=== PATIENT | female | born 1940 | race Caucasian/White ===

== ENCOUNTER 2024-11-27 16:41 | Inpatient (IN) | payer MEDICARE, MEDICAID, SELFPAY ==
[2024-11-27] VITALS (7 sets, daily range): BP systolic 124–165; BP diastolic 87–97; PULSE 92–116; RESP 16–22; TEMP 36.6–36.9; O2SAT 95–97; BMI 25.0
[2024-11-27 19:19] LABS: Basophils # (Auto) 0.1 Thou/mm3 (0.0-0.2); Basophils % (Auto) 0 % (0-2.5); Eosinophils % (Auto) 0 % (0-10); Hematocrit 44.5 % (36.0-46.0); Hemoglobin 14.2 g/dL (12.0-16.0); Immature Granulocytes % (Auto) 1 % (0-0); Immature Granulocytes Auto 0.12 Thou/mm3 (0.00-0.00); Lymphocytes # (Auto) 1.1 Thou/mm3 (1.0-4.8); Lymphocytes % (Auto) 5 % (10-50); Mean Corpuscular HGB Conc 31.9 g/dl (31.0-37.0); Mean Corpuscular Hemoglobin 26.4 pg (25.0-35.0); Mean Corpuscular Volume 83 fL (80-100); Monocytes # (Auto) 1.3 Thou/mm3 (0.0-0.8); Monocytes % (Auto) 6 % (0-12); Neutrophils # (Auto) 19.3 Thou/mm3 (1.8-7.7); Neutrophils % (Auto) 88 % (37-80); Nucleated Red Blood Cell % 0 /100 WBC (0); Platelet Count 506 Thou/mm3 (140-440); RDW Standard Deviation 48.8 fL (36.4-46.3); Red Blood Count 5.37 Miln/mm3 (4.00-5.20)
[2024-11-27] MEDS: ONDANSETRON INJ 2 MG/ML INJ 2 ML 4 MG IV ×2 (19:34→20:46)
[2024-11-27] MEDS: SODIUM CHLORIDE 0.9% 1000 ML 1,000 ML 999 ML IV ×2 (19:34→22:47)
[2024-11-27 19:51] LABS: Alanine Aminotransferase 22 U/L (10-49); Albumin, Serum 5.2 gm/dL (3.4-4.8); Albumin/Globulin Ratio 1.6 (1.2-2.2); Alkaline Phosphatase 176 U/L (46-116); Anion Gap 14 (7-16); Aspartate Amino Transferase 29 U/L (0-34); BUN/Creatinine Ratio 16 Ratio (12-20); Bilirubin,Total 0.7 mg/dL (0.3-1.2); Blood Urea Nitrogen 32 mg/dL (9-23); Calcium 10.3 mg/dL (8.3-10.6); Calcium (Corrected) 10.3 mg/dL (8.5-10.1); Carbon Dioxide 25.4 mMol/L (20.0-31.0); Chloride 97 mMol/L (98-107); Estimated Creatinine Clearance 21.1 mL/min (>60); Globulin 3.3 gm/dL (2.3-3.5); Glucose 348 mg/dL (74-106); Lipase 41 U/L (12-53); Osmolality,Calculated 292 (275-295); Potassium 4.4 mMol/L (3.4-5.1); Sodium 136 mMol/L (136-145); Total Protein 8.5 gm/dL (5.7-8.2); eGFR 24 See Note
--- NOTE | 2024-11-27 20:17 | EDNOTE_ITS ---
Nausea/Vomit./Diarrhea-RME/HPI General Chief complaint: Nausea/Vomiting/Diarrhea Stated complaint: NAUSEA,WEAKNESS, VOMITTING Time Seen by Provider: 11/27/24 18:13 Arrival date/time: 11/27/24 16:41 This is a 84-year-old female that comes in with complaints of abdominal pain nausea vomiting that started prior to arrival. Patient also reports diarrhea. Patient states she feels like she is dehydrated. Patient reports history of anxiety, GERD, diabetes. Previous notes report that patient has a history of dementia. Related Data Home Medications ?Medication ?Instructions ?Recorded ?Confirmed alprazolam 0.5 mg tablet 0.5 mg PO QDAY PRN Anxiety 1 12/14/18 11/29/24 insulin glargine 100 unit/mL (3 16 unit subcut DAILY 1 11/29/24 mL) subcutaneous pen (Basaglar KwikPen U-100 Insulin) diphenhydramine HCl 25 mg capsule mg 11/29/24 (Banophen) pregabalin 75 mg capsule mg 11/29/24 ropinirole 0.5 mg tablet mg 11/29/24 Previous Rx's ?Medication ?Instructions ?Recorded Lactobacillus acidophilus 20 100 mmu cells (0.005 x 20 billion 11/30/24 billion cell capsule cell) PO QDAY #30 caps psyllium husk 0.4 gram capsule 0.4 g PO QDAY PRN const ipation #30 11/30/24 (Fiber (psyllium husk)) caps Allergies Allergy/AdvReac Type Severity Reaction Status Date / Time No Known Allergies Allergy Verified 08/09/22 16:16 Review of Systems Review of Systems Systems Reviewed: All systems reviewed, normal except as documented Past Medical History Past Medical History NEUROLOGIC: Positive Migraine CARDIAC: Positive Cardiac Disorders, Edema, Hypertension and Varicose Veins RESPIRATORY: Positive Bronchitis and Pneumonia GASTROINTESTINAL: Positive Gastrointestinal Disorders, Gall Bladder Disease, Ulcer and Gastroesophageal Reflux Disease REPRODUCTIVE: Positive Previous Pregnancies MUSCULOSKELETAL: Positive Musculoskeletal Disorders, Arthritis and Fractures ENT: Positive Cataracts ENDOCRINE: Positive Endocrine Disorders and Diabetes Mellitus Type 2 PSYCHO/SOCIAL: Positive Depression and Anxiety OTHER HISTORY: Positive Falls, Chicken Pox, Measles, Mumps and Cancer Family History FAMILY HISTORY: Negative Family Cardiac Disorders Surgical History SURGICAL: Positive Tonsillectomy, Joint Replacement, Hysterectomy and Tubal Ligation Social History SMOKING STATUS: Never smoker SECOND HAND EXPOSURE: No SUBSTANCE USE: does not use ED Exam General General appearance: Present alert and other (Moderate distress vomiting upon arrival) Head Head exam: Present atraumatic Eye Eye exam: Present normal appearance, PERRL and EOMI ENT ENT exam: Present normal exam, normal oropharynx and mucous membranes moist Neck Neck exam: Present normal inspection, full ROM and trachea midline Chest Chest inspection: Present normal inspection and symmetric chest wall rise Respiratory Respiratory exam: Present normal lung sounds bilaterally Cardiovascular Cardiovascular exam: Present regular rate, normal rhythm and normal heart sounds Abdominal Exam Abdominal exam: Present soft and other (Diffuse abdominal pain pain to palpation.) Extremities Exam Extremities exam: Present normal inspection and full ROM Back Exam Back exam: Present normal inspection and full ROM Neurological Exam Neurological exam: Present alert and oriented X3 Psychiatric Psychiatric exam: Present normal affect and normal mood Skin Skin exam: Present warm, dry, intact and normal color Course Quality Measures none Orders Category Date Time Status Bedside COVID-19 Antigen Test NOW Care 11/27/24 19:01 Completed Bedside Influenza A&B Antigen Test NOW Care 11/27/24 19:01 Completed COVID-19 Screening Questionnaire NOW Care 11/28/24 01:[address] Screening NOW Care 11/27/24 20:33 Completed Decision to Admit X1 Care 11/28/24 01:29 Completed IV [Insert IV] NOW Care 11/27/24 18:36 Completed NG / OG Tube to LIS NOW Care 11/28/24 01:[address] abdomen pelvis w con Stat Exams 11/27/24 20:33 Completed Beta Hydroxybutyrate Stat Lab 11/27/24 23:00 Completed CBC Stat Lab 11/27/24 18:30 Completed Comprehensive Metabolic Panel Stat Lab 11/27/24 18:30 Completed Lipase Stat Lab 11/27/24 18:30 Completed Urinalysis, C/S if Indicated Stat Lab 11/27/24 22:17 Completed Urine Culture Stat Lab 11/27/24 22:17 Completed Ondansetron Inj [Zofran Inj] Med 11/27/24 19:03 Discontinued 4 mg IV X1 ONE Ondansetron Inj [Zofran Inj] Med 11/27/24 20:33 Discontinued 4 mg IV X1 ONE Piper/Tazo Inj [Zosyn Inj] 3.375 gm Med 11/27/24 23:09 Discontinued Sodium Chloride 0.9% (P) [Ns 0.9% (P)] 50 ml IV X1 Sodium Chloride 0.9% 1000 ml [Ns] 1,000 ml Med 11/27/24 19:01 Discontinued IV 999 mls/hr Sodium Chloride 0.9% 1000 ml [Ns] 1,000 ml Med 11/27/24 22:26 Discontinued IV 999 mls/hr fentaNYL INJ [Sublimaze Inj] Med 11/27/24 20:17 Discontinued 12.5 mcg IV X1 ONE fentaNYL INJ [Sublimaze Inj] Med 11/27/24 22:24 Discontinued 25 mcg IV X1 ONE Vital Signs Vital signs: Vital Signs Temperature 98.4 F 11/27/24 16:45 Pulse Rate 115 H 11/27/24 16:45 Respiratory Rate 16 11/27/24 16:45 Blood Pressure 124/87 H 11/27/24 16:45 Pulse Oximetry (%) 95 11/27/24 16:45 Oxygen Delivery Method Room Air 11/27/24 16:45 Nausea/Vomiting/Diarrhea MDM Narrative MDM Narrative:: Upon arrival to the emergency room patient vomiting. Patient was given 2 separate doses of Zofran IV. 2 L of IV fluid given to patient. Fentanyl given for pain. Patient's labs show a white count of 22, hemoglobin and hematocrit of 14.2 and 44.5, platelet 406, neutrophil count 88. Patient BUN and creatinine elevated at 32 and 2.0. Glucose is 348, alk phos is 176, AST and ALT unremarkable. Lipase is 41. Urine positive for UTI. Patient given a dose of Zosyn. Awaiting CT results. I gave report to Dr. Newman at 2300 she will follow-up with CT results. Patient data External records reviewed:: [facility] previous records Clinical information provided by:: patient Social determinants that could affect healthcare access:: none Patient has the following chronic illnesses:: see hpi How is presenting disease/condition affected by chronic disease/condition?: exacerbated by Evaluation data The following diagnostics were reviewed and interpreted by me:: lab results and radiology exam(s) Lab and/or radiology exams considered but not ordered:: none Interpretation Summary: see note Medications / Prescriptions Medications / Prescriptions considered but not ordered:: none Medication administrations:: Medication Administration History Discontinued Medications Acetaminophen (Acetaminophen 325 Mg Tablet) 650 mg PO Q6H PRN PRN Reason: PAIN SCALE 1-3 (mild Stop: 12/28/24 01:53 Acetaminophen (Acetaminophen 325 Mg Tablet) 650 mg PO Q6H PRN PRN Reason: Fever >100 Stop: 12/28/24 01:53 Dextrose (Dextrose 50%-Water Inj 50 Ml Syringe) 25 ml IV Q15MIN PRN PRN Reason: BG 50-70 responsive npo pt Stop: 12/28/24 01:53 Dextrose (Dextrose 50%-Water Inj 50 Ml Syringe) 50 ml IV Q15MIN PRN PRN Reason: BG <50 OR BG <70 & pt unresponsive Stop: 12/28/24 01:53 Diphenhydramine HCl (Diphenhydramine Inj 50 Mg/Ml Vial) 12.5 mg IVP Q6H PRN PRN Reason: ITCHING Stop: 12/28/24 01:58 Fentanyl Citrate (Fentanyl Cit Inj 50 Mcg/Ml Amp 2ml) 12.5 mcg IV X1 ONE Stop: 11/27/24 20:18 Last Admin: 11/27/24 20:27 Dose: 12.5 mcg Documented By: EF Fentanyl Citrate (Fentanyl Cit Inj 50 Mcg/Ml Amp 2ml) 25 mcg IV X1 ONE Stop: 11/27/24 22:25 Last Admin: 11/27/24 22:48 Dose: 25 mcg Documented By: EF Fosfomycin Tromethamine (Fosfomycin Pwd 3 Gm Packet (Non-Formulary)) 3 gm PO X1 ONE Stop: 11/30/24 16:30 Last Admin: 11/30/24 18:15 Dose: Not Given Documented By: SP Non-Admin Reason: Medication Not Available Comments: patient ready to go home med not available to give Glucagon (Glucagon Inj 1 Mg Vial) 1 mg IM Q15MIN PRN PRN Reason: BG <70, and no IV access Heparin Sodium (Porcine) (Heparin Sod Inj 5000 Unit/Ml Vial) 5,000 unit SC Q8HR HARINI Stop: 12/12/24 05:59 Last Admin: 11/30/24 15:34 Dose: 5,000 unit Documented By: LADONNA Co-signed By: Admin: 11/30/24 06:23 Dose: 5,000 unit Documented By: CTF Co-signed By: AAA Admin: 11/29/24 22:00 Dose: 5,000 unit Documented By: CTF Co-signed By: AAA Admin: 11/29/24 14:58 Dose: 5,000 unit Documented By: Co-signed By: HERRERA Admin: 11/29/24 07:23 Dose: 5,000 unit Documented By: SAMRA Co-signed By: DEWAYNE Admin: 11/28/24 23:36 Dose: 5,000 unit Documented By: SAMRA Co-signed By: DEWAYNE Admin: 11/28/24 14:00 Dose: 5,000 unit Documented By: VG Co-signed By: TM Admin: 11/28/24 06:29 Dose: 5,000 unit Documented By: WINTER Co-signed By: JORDAN Hydromorphone HCl (Hydromorphone Inj 2 Mg/Ml Vial) 0.25 mg IVP Q6H PRN PRN Reason: PAIN Stop: 12/03/24 02:53 Last Admin: 11/28/24 04:07 Dose: 0.25 mg Documented By: JORDAN Hydromorphone HCl (Hydromorphone Inj 2 Mg/Ml Vial) 0.25 mg IVP Q6H PRN PRN Reason: PAIN SCALE 4-10(Mod-Sev Stop: 12/03/24 02:53 Last Admin: 11/28/24 18:20 Dose: 0.25 mg Documented By: SPENCER Sodium Chloride (Ns) 1,000 mls @ 999 mls/hr IV .Q1H1M ONE Stop: 11/27/24 20:01 Last Infusion: 11/27/24 20:35 Dose: Infused Documented By: Admin: 11/27/24 19:34 Dose: 999 mls/hr Documented By: EF Sodium Chloride (Ns) 1,000 mls @ 999 mls/hr IV .Q1H1M ONE Stop: 11/27/24 23:26 Last Infusion: 11/27/24 23:48 Dose: Infused Documented By: Admin: 11/27/24 22:47 Dose: 999 mls/hr Documented By: EF Piperacillin Sod/Tazobactam (Sod 3.375 gm/ Sodium Chloride) 50 mls @ 100 mls/hr IV X1 ONE Stop: 11/27/24 23:38 Last Infusion: 11/27/24 23:50 Dose: Infused Documented By: Admin: 11/27/24 23:20 Dose: 100 mls/hr Documented By: AC Sodium Chloride (Ns) 1,000 mls @ 125 mls/hr IV .Q8H AHRINI Stop: 12/28/24 02:03 Last Admin: 11/30/24 09:54 Dose: 125 mls/hr Documented By: Infusion: 11/30/24 08:01 Dose: Infused Documented By: Admin: 11/30/24 00:01 Dose: 125 mls/hr Documented By: Infusion: 11/30/24 00:01 Dose: Infused Documented By: Admin: 11/29/24 17:59 Dose: 125 mls/hr Documented By: Infusion: 11/29/24 15:22 Dose: Infused Documented By: Admin: 11/29/24 07:22 Dose: 125 mls/hr Documented By: Infusion: 11/29/24 07:22 Dose: Infused Documented By: Admin: 11/28/24 23:35 Dose: 125 mls/hr Documented By: Infusion: 11/28/24 22:04 Dose: Infused Documented By: Admin: 11/28/24 14:04 Dose: 125 mls/hr Documented By: Infusion: 11/28/24 13:51 Dose: Infused Documented By: Admin: 11/28/24 02:32 Dose: 125 mls/hr Documented By: LEXA Insulin Glargine (Insulin Glargine (Lantus) 5 Unit/0.05 Ml (Per 5 Units)) [facility] Stop: 12/28/24 08:59 Last Admin: 11/30/24 09:14 Dose: 16 unit Documented By: LADONNA Co-signed By: Admin: 11/29/24 09:14 Dose: 16 unit Documented By: Co-signed By: HENRI Admin: 11/28/24 10:15 Dose: 16 unit Documented By: JITENDRA Co-signed By: ZACH Insulin Human Lispro (Insulin Lispro (Admelog) 1 Unit/0.01 Ml Unit) 0 unit SC AC [facility]; Protocol Stop: 12/28/24 07:29 Last Admin: 11/30/24 19:24 Dose: Not Given Documented By: LADONNA Non-Admin Reason: Per Protocol Admin: 11/30/24 12:20 Dose: Not Given Documented By: LADONNA Non-Admin Reason: Per Protocol Admin: 11/30/24 08:00 Dose: Not Given Documented By: LADONNA Non-Admin Reason: Per Protocol Admin: 11/29/24 17:01 Dose: Not Given Documented By: Non-Admin Reason: Per Protocol Admin: 11/29/24 11:50 Dose: Not Given Documented By: Non-Admin Reason: NPO Comments: ROMAIN okay to skip Admin: 11/29/24 07:44 Dose: Not Given Documented By: Non-Admin Reason: NPO Admin: 11/28/24 17:13 Dose: Not Given Documented By: SPENCER Non-Admin Reason: NPO Admin: 11/28/24 14:00 Dose: 3 unit Documented By: JITENDRA Co-signed By: ZACH Comments: CONFIRMED W/PROVIDER OK TO GIVE NOW Admin: 11/28/24 07:47 Dose: 3 unit Documented By: JITENDRA Co-signed By: ZACH Lactobacillus Rhamnosus (Lactobacillus Rhamnosus 1 Cap) 1 cap PO BID HARINI Stop: 12/29/24 11:59 Last Admin: 11/30/24 09:14 Dose: 1 cap Documented By: Admin: 11/29/24 21:58 Dose: 1 cap Documented By: Admin: 11/29/24 12:10 Dose: Not Given Documented By: Non-Admin Reason: PT. NPO MD aware Melatonin (Melatonin 3 Mg Tablet) 3 mg PO X1 ONE Stop: 11/29/24 23:45 Last Admin: 11/30/24 00:01 Dose: 3 mg Documented By: SAMRA Metoclopramide HCl (Metoclopramide Inj 5 Mg/Ml Vial 2 Ml) 5 mg IVP Q8HR PRN; Protocol PRN Reason: NAUSEA OR VOMITING Stop: 12/28/24 01:59 Last Admin: 11/28/24 18:19 Dose: 5 mg Documented By: Admin: 11/28/24 10:15 Dose: 5 mg Documented By: JITENDRA Metoclopramide HCl (Metoclopramide Inj 5 Mg/Ml Vial 2 Ml) 5 mg IVP X1 ONE; Protocol Stop: 11/28/24 01:59 Last Admin: 11/28/24 04:07 Dose: 5 mg Documented By: JORDAN Ondansetron HCl (Ondansetron Inj 2 Mg/Ml Inj 2 Ml) 4 mg IV X1 ONE; Protocol Stop: 11/27/24 19:04 Last Admin: 11/27/24 19:34 Dose: 4 mg Documented By: WINTER Ondansetron HCl (Ondansetron Inj 2 Mg/Ml Inj 2 Ml) 4 mg IV X1 ONE; Protocol Stop: 11/27/24 20:34 Last Admin: 11/27/24 20:46 Dose: 4 mg Documented By: EF Ondansetron HCl (Ondansetron Inj 2 Mg/Ml Inj 2 Ml) 4 mg IV Q6H PRN; Protocol PRN Reason: NAUSEA OR VOMITING Stop: 12/28/24 01:53 Last Admin: 11/29/24 10:49 Dose: 4 mg Documented By: Admin: 11/28/24 15:53 Dose: 4 mg Documented By: GC Pantoprazole Sodium (Pantoprazole Inj 40 Mg Vial) 40 mg IVP QDAY HARINI Stop: 12/28/24 08:59 Last Admin: 11/30/24 09:54 Dose: 40 mg Documented By: Admin: 11/29/24 09:13 Dose: 40 mg Documented By: Admin: 11/28/24 10:15 Dose: 40 mg Documented By: VG Prochlorperazine Edisylate (Prochlorperazine Inj 5 Mg/Ml Vial 2 Ml) 10 mg IVP Q6H [facility]; Protocol Stop: 12/29/24 11:59 Last Admin: 11/30/24 15:00 Dose: 10 mg Documented By: Admin: 11/30/24 06:21 Dose: 10 mg Documented By: Admin: 11/29/24 23:26 Dose: 10 mg Documented By: Admin: 11/29/24 18:48 Dose: 10 mg Documented By: Admin: 11/29/24 14:50 Dose: 10 mg Documented By: Comments: pharmacy brought in late see [facility] Consultations Consultation(s) initiated? (list below): No Diagnosis Nausea Differential Diagnosis: gastroenteritis, dehydration and other (SBO, constiptation ) Most likely diagnosis given after review of the tests above:: sbo Admission Indicated Admission indicated?: indicated Admission Request Was there a request for admission?: Yes Admission Attestation Admission request attestation: Discussed case Hospitalist service regarding admission. Discussed patients ED course, exam findings, labs, and radiology results. The Hospitalist agrees to accept the patient for admission. Disposition Plan Disposition Plan: Admit Discharge Plan Plan Patient Disposition: Admit Acute Care w/in Hospital Disposition Comment: MT Patient condition on transfer: Stable Problem List Clinical Impression: Abdominal pain, Hyperglycemia, Diabetes mellitus, Acute kidney injury, Acute dehydration, Acute UTI, Small bowel obstruction Patient/Caregiver Discharge Instructions Other Activity Instructions:: Follow-up with PCP within 1 week Continue taking medicines as prescribed Follow-up with primary care in regards to pneumobilia seen on CT abdomen pelvis incidental finding Take Fiber and probiotic as needed
[2024-11-27] MEDS: fentaNYL CIT INJ 50 mCg/ML AMP 2ML 12.5 MCG IV (20:27)
--- NOTE | 2024-11-27 20:33 | XR_ITS ---
Examination: CT abdomen with intravenous contrast CT pelvis with intravenous contrast 2-D coronal reconstructions 2-D sagittal reconstructions Date and time of exam:November 27, 2024 2152 hrs. Comparison 07/03/2023 Indications: Nausea abdominal pain and vomiting today. CTDI: vol (mGy) 7.12 DLP: (mGycm) 384 Technique: Multiple axial sections of the abdomen and pelvis have been obtained. 64 slice high-resolution scanner used. 3 mm axial sections have been obtained, post intravenous injection 30 cc Isovue-300.2-D sagittal, coronal reconstructions obtained. Low dose protocols were performed. One or more of the following dose reduction techniques were used; automated exposure control, adjustment of the mA and/or KV according to patient size, use of iterative reconstruction technique. Findings: Pneumobilia Absent gallbladder Spleen is not enlarged No pancreatic mass Multiple fluid distended small bowel loops Left hip arthroplasty generates artifacts in the pelvis Severe osteopenia with kyphoplasty L2 and fusion L4-S1 with satisfactory alignment Impression: High-grade mechanical small bowel obstruction
[2024-11-27 22:45] LABS: Collection Type, Urine Voided
[2024-11-27] MEDS: fentaNYL CIT INJ 50 mCg/ML AMP 2ML 25 MCG IV (22:48)
[2024-11-27 23:02] LABS: Bacteria,Urine 3+; Bilirubin,Urine Negative (Negative); Blood,Urine Negative (Negative); Color,Urine Yellow (Lt Yel-Yel); Glucose, Urine 3+ (Negative); Hyaline Casts,Urine 1 /hpf (0-1); Ketones,Urine Negative (Negative); Leukocyte Esterase,Urine Positive (Negative); Nitrite,Urine Negative (Negative); PH,Urine 5.5 (5.0-7.0); Protein,Urine 1+ (Neg - Trace); RBC,Urine 10 /hpf (0-3); Specific Gravity,Urine 1.027 (1.001-1.035); Squamous Epithelial Cell,Urine 6 /hpf (0-5); Urobilinogen,Urine Negative mg/dL (0.0-1.0); WBC,Urine 19 /hpf (0-5)
[2024-11-27 23:04] LABS: Clarity,Urine Hazy (Clear/Hazy); Culture Indicated,Urine Yes
[2024-11-27 23:19] LABS: Beta Hydroxybutyrate 0.1 mmol/L (<0.6)
[2024-11-27] MEDS: PIPER/TAZO INJ 3.375 GM in SODIUM CHLORIDE 0.9% (P) 50 ML IV (23:20)
[2024-11-28] VITALS (8 sets, daily range): BP systolic 112–165; BP diastolic 66–96; PULSE 99–108; RESP 16–24; TEMP 36.1–36.8; O2SAT 94–97; BMI 22.1
--- NOTE | 2024-11-28 | XR_ITS ---
Examination: Abdomen AP single view Technique: AP portable supine abdomen, single view Exam date and time: November 28, 2024 and 1917 hours INDICATIONS: 6 hour delayed film post small bowel series today. FINDINGS: Markedly distended small bowel loops IMPRESSION: High-grade mechanical small bowel obstruction. Additional delayed films will be obtained.
--- NOTE | 2024-11-28 | XR_ITS ---
Examination: Small bowel series with KUB's AP supine abdomen 6 views of Examination type: November 28, 2024 1319 hours INDICATIONS: Abdominal pain and distention this week, small bowel obstruction pattern on CT abdomen pelvis November 27, 2024 TECHNIQUE AND FINDINGS: Studio Manager AP supine abdomen demonstrates satisfactory position orogastric tube Air distended small bowel loops in Abdomen films immediate, 1 minute, 30 minutes, 2 hours, 3.5 hours show contrast in distended small bowel loops measuring up to 5.7 cm in dimension IMPRESSION: High-grade mechanical small bowel obstruction Multiple delayed films will be obtained
--- NOTE | 2024-11-28 00:11 | PD.EDADDENDU ---
Emergency Room Addendum <Jordyn Bahena - Last Filed: 11/28/24 01:31> Addendum Narrative: 2300: Care assumed from Shante Hanna NP. Past medical, surgical, social and family history reviewed. Vitals and home medications reviewed. Results and treatment plan discussed. I will assume the care of the patient at this time and will follow the patient, pending CT abdomen pelvis. Please refer to the emergency department record for history and examination from initial visit. 0127: Discussed case with [Dr. Smith] from [general surgery] regarding [consultation]. Discussed patients ED course, exam findings, labs, and radiology results. Agrees to consult. Requests gastrografin tomorrow and NG tube placement due to the patient actively vomiting. 0130: Discussed case with [the resident physician, attending Dr. Weeks] from Hospitalist service regarding admission. Discussed patients ED course, exam findings, labs, and radiology results. The Hospitalist [agrees] to accept the patient for admission. RADIOLOGY RESULTS: [facility] Report Signed Patient: INDIRA WILCOX [facility] Record#: [id number] Birthdate: 1940 Age/Sex: 84 / F Location: [facility] Attending Dr: Ordering Physician: Shante Hanna NP Date of Service: 11/27/24 Procedure(s): CT abdomen pelvis w con Accession Number(s): [id number] cc: Bharathi Dominguez MD; Ramesh Ochoa MD; Shante Hanna NP~ Examination: CT abdomen with intravenous contrast CT pelvis with intravenous contrast 2-D coronal reconstructions 2-D sagittal reconstructions Date and time of exam:November 27, 2024 2152 hrs. Comparison 07/03/2023 Indications: Nausea abdominal pain and vomiting today. CTDI: vol (mGy) 7.12 DLP: (mGycm) 384 Technique: Multiple axial sections of the abdomen and pelvis have been obtained. 64 slice high-resolution scanner used. 3 mm axial sections have been obtained, post intravenous injection 30 cc Isovue-300.2-D sagittal, coronal reconstructions obtained. Low dose protocols were performed. One or more of the following dose reduction techniques were used; automated exposure control, adjustment of the mA and/or KV according to patient size, use of iterative reconstruction technique. Findings: Pneumobilia Absent gallbladder Spleen is not enlarged No pancreatic mass Multiple fluid distended small bowel loops Left hip arthroplasty generates artifacts in the pelvis Severe osteopenia with kyphoplasty L2 and fusion L4-S1 with satisfactory alignment Impression: High-grade mechanical small bowel obstruction Dictated By: Ramesh Ochoa MD Signed By: <Electronically signed by Ramesh Ochoa MD in [place]> 11/27/24 0780 <Odette Perera MD - Last Filed: 11/28/24 06:36> Addendum Narrative: 2300: Care assumed from Shante Hanna NP. Past medical, surgical, social and family history reviewed. Vitals and home medications reviewed. Results and treatment plan discussed. I will assume the care of the patient at this time and will follow the patient, pending CT abdomen pelvis. Please refer to the emergency department record for history and examination from initial visit. Re-evaluation to the emergency department. Reviewed the note by the nurse petitioner. The patient continued to have some vomiting and at this time an NG tube is agreeable to the patient. Her abdomen Physical exam; shows mildly distended abdomen with no rebound. Patient last had a bowel movement yesterday. Heart rate is improved to 105 with blood pressure stable 112/66. Pain is controlled however the patient does not get getting relief from her nausea and therefore NG tube is recommended in place. 0127: Discussed case with [Dr. Smith] from [general surgery] regarding [consultation]. Discussed patients ED course, exam findings, labs, and radiology results. Agrees to consult. Requests gastrografin tomorrow and NG tube placement due to the patient actively vomiting. 0130: Discussed case with [the resident physician, attending Dr. Weeks] from Hospitalist service regarding admission. Discussed patients ED course, exam findings, labs, and radiology results. The Hospitalist [agrees] to accept the patient for admission. RADIOLOGY RESULTS: [facility] Report Signed Patient: INDIRA WILCOX [facility]. Record#: [id number] Birthdate: 1940 Age/Sex: 84 / F Location: [facility] Attending Dr: Ordering Physician: Shante Hanna NP Date of Service: 11/27/24 Procedure(s): CT abdomen pelvis w con Accession Number(s): [id number] cc: Bharathi Dominguez MD; Ramesh Ochoa MD; Shante Hanna NP~ Examination: CT abdomen with intravenous contrast CT pelvis with intravenous contrast 2-D coronal reconstructions 2-D sagittal reconstructions Date and time of exam:November 27, 2024 2152 hrs. Comparison 07/03/2023 Indications: Nausea abdominal pain and vomiting today. CTDI: vol (mGy) 7.12 DLP: (mGycm) 384 Technique: Multiple axial sections of the abdomen and pelvis have been obtained. 64 slice high-resolution scanner used. 3 mm axial sections have been obtained, post intravenous injection 30 cc Isovue-300.2-D sagittal, coronal reconstructions obtained. Low dose protocols were performed. One or more of the following dose reduction techniques were used; automated exposure control, adjustment of the mA and/or KV according to patient size, use of iterative reconstruction technique. Findings: Pneumobilia Absent gallbladder Spleen is not enlarged No pancreatic mass Multiple fluid distended small bowel loops Left hip arthroplasty generates artifacts in the pelvis Severe osteopenia with kyphoplasty L2 and fusion L4-S1 with satisfactory alignment Impression: High-grade mechanical small bowel obstruction Dictated By: Ramesh Ochoa MD Signed By: <Electronically signed by Ramesh Ochoa MD in [place]> 11/27/24 7027
--- NOTE | 2024-11-28 02:04 | ESHP_ITS ---
Documentation for date of: 11/28/24 [facility] History of Present Illness History of present illness: This is an 84-year-old female PMHx of HTN, IDDM, peripheral neuropathy, chronic OPIOID use, multiple abdominal surgery with recurrent SBO, presenting with 3 days of abdominal pain, nausea and vomiting. Reports diffuse abdominal distention and nonradiating 7/10 pain, associated with ongoing nausea and recurrent episodes of nonbloody, brown emesis. Also had an episode of watery diarrhea 3 days ago, no bowel movement since then. Reports poor oral intake over the last 3 days secondary to nausea. Had 2 previous episodes, the last was 2 years ago for which he was admitted for SBO and resolved 2 to 3 days with conservative management. Denies fever, chills, headaches, chest pain, shortness of breath, upper or lower GI bleed, dysuria, urinary frequency or urgency, or hematuria. ED COURSE: On exam she had mild distress secondary to pain. Afebrile, BP 163/96, HR 108, RR 19, satting 97% on room air. Labs significant for WBC 22.0, CR 2.0, GLUCOSE 348, corrected calcium 10.3, alk phos 176, total protein 8.5. UA showed WBCs 19, positive leukocyte esterase. CT abdomen showed high-grade mechanical small bowel obstruction. CXR no acute pathology, pending final read. PMHx: HTN, IDDM, peripheral neuropathy, chronic OPIOID use, recurrent SBO. PSHx: Hysterectomy, cholecystectomy, appendectomy. MEDS: LANSOPRAZOLE 30 mg, XANAX 0.5 mg daily, PREGABALIN 75 mg BID, GABAPENTIN 300 mg TID, ROPINIROLE 0.5 mg daily, BENADRYL 1-2 mg q.4h. for itching ALLERGIES: No known allergies SH: Denies alcohol, tobacco or drug use. Exam Vital Signs Temp Pulse Resp BP Pulse Ox O2 Del Method O2 Flow Rate 98.0 F 108 H 19 163/96 H 97 Nasal Cannula 2 11/28/24 00:30 11/28/24 00:30 11/28/24 00:30 11/28/24 00:30 11/28/24 00:30 11/28/24 00:30 11/28/24 00:30 Narrative Exam GENERAL * Frail elderly female, in mild distress secondary to pain, on room air. HEENT * NCAT.?ENRRIQUE. Slightly dry oral mucosa. Patent Nares NECK * Supple, nontender, no thyromegaly, no meningismus, no JVD, no step offs CHEST * RRR, no m/g/r * CTAB, no w/r/r. Symmetrical chest rise. No intercostal subcostal retraction * Atraumatic, nontender, no crepitus, symmetrical expansion. ABDOMEN * Soft, distended, diffusely tender. * No guarding/rebound tenderness/masses. * Bowel sounds presents EXTREMITIES * Nontender, no cyanosis, no edema * No edema/cyanosis.? SKIN * Warm and dry, no jaundice/rashes. * Decreased skin turgor NEUROMUSCULAR * No lumbar or midline, no CVA, no paraspinal muscle spasm or tenderness. * Moves all 4 extremities well, with full ROM and good CSM. * [place] x4, CN II-XII grossly intact. * No focal neurologic deficits. PSYCHIATRY * Normal mood and affect, cooperative, no SI or HI or hallucinations. Results: Labs 11/27/24 18:30 11/27/24 18:30 Labs: Short CBC 11/27/24 Range/Units 18:30 WBC 22.0 H (3.6-11.0) Thou/mm3 Hgb 14.2 (12.0-16.0) g/dL Hct 44.5 (36.0-46.0) % Plt Count 506 H (140-440) Thou/mm3 BMP 11/27/24 18:30 Sodium 136 Potassium 4.4 Chloride 97 L Carbon Dioxide 25.4 BUN 32 H Creatinine 2.0 H Glucose 348 H Calcium 10.3 Liver Function 11/27/24 Range/Units 18:30 Total Bilirubin 0.7 (0.3-1.2) mg/dL AST 29 (0-34) U/L ALT 22 (10-49) U/L Alkaline Phosphatase 176 H (46-116) U/L Albumin 5.2 H (3.4-4.8) gm/dL Urine 11/27/24 Range/Units 22:17 Urine Color Yellow (Lt Yel-Yel) Urine Clarity Hazy (Clear/Hazy) Urine pH 5.5 (5.0-7.0) Ur Specific [place] 1.027 (1.001-1.035) Urine Protein 1+ A (Neg - Trace) Urine Glucose (UA) 3+ A (Negative) Quality Measures Quality Measures VTE prophylaxis Advance care planning discussed with:: patient Medications Home Medications and Allergies Home Medications ?Medication ?Instructions ?Recorded ?Confirmed ?Type alprazolam 0.5 mg tablet 0.5 mg PO QDAY PRN Anxiety 1 12/14/18 05/05/24 History hydrocodone 7.5 mg-acetaminophen 1 tab PO DAILY PRN Pa in 10/13/19 05/05/24 History 325 mg tablet diphenhydramine HCl 25 mg tablet 25 mg PO Q4-5H PRN Al lergy Symptoms 01/03/21 05/05/24 History (Banophen) lansoprazole 30 mg capsule,delayed 30 mg PO QDAY 01/0305/05/24 History release (Prevacid) gabapentin 300 mg capsule 300 mg PO TID 08/08/2205/05 History (Neurontin) insulin glargine 100 unit/mL (3 16 unit subcut DAILY 1 05/05/24 History mL) subcutaneous pen (Basaglar KwikPen U-100 Insulin) Allergies Allergy/AdvReac Type Severity Reaction Status Date / Time No Known Allergies Allergy Verified 08/09/22 16:16 Visit Medications Acetaminophen (Acetaminophen 325 Mg Tablet) 650 mg PO Q6H PRN PRN Reason: PAIN SCALE 1-3 (mild Stop: 12/28/24 01:53 Acetaminophen (Acetaminophen 325 Mg Tablet) 650 mg PO Q6H PRN PRN Reason: Fever >100 Stop: 12/28/24 01:53 Dextrose (Dextrose 50%-Water Inj 50 Ml Syringe) 25 ml IV Q15MIN PRN PRN Reason: BG 50-70 responsive npo pt Stop: 12/28/24 01:53 Dextrose (Dextrose 50%-Water Inj 50 Ml Syringe) 50 ml IV Q15MIN PRN PRN Reason: BG <50 OR BG <70 & pt unresponsive Stop: 12/28/24 01:53 Diphenhydramine HCl (Diphenhydramine Inj 50 Mg/Ml Vial) 12.5 mg IVP Q6H PRN PRN Reason: ITCHING Stop: 12/28/24 01:58 Glucagon (Glucagon Inj 1 Mg Vial) 1 mg IM Q15MIN PRN PRN Reason: BG <70, and no IV access Insulin Glargine (Insulin Glargine (Lantus) 5 Unit/0.05 Ml (Per 5 Units)) 16 unit SC QDAY [facility] Stop: 12/28/24 08:59 Insulin Human Lispro (Insulin Lispro (Admelog) 1 Unit/0.01 Ml Unit) 0 unit SC AC HARINI; Protocol Stop: 12/28/24 07:29 Metoclopramide HCl (Metoclopramide Inj 5 Mg/Ml Vial 2 Ml) 5 mg IVP Q8HR PRN; Protocol PRN Reason: NAUSEA OR VOMITING Stop: 12/28/24 01:59 Metoclopramide HCl (Metoclopramide Inj 5 Mg/Ml Vial 2 Ml) 5 mg IVP X1 ONE; Protocol Stop: 11/28/24 01:59 Ondansetron HCl (Ondansetron Inj 2 Mg/Ml Inj 2 Ml) 4 mg IV Q6H PRN; Protocol PRN Reason: NAUSEA OR VOMITING Stop: 12/28/24 01:53 Ondansetron HCl (Ondansetron Inj 2 Mg/Ml Inj 2 Ml) 4 mg IV Q6HR PRN; Protocol PRN Reason: NAUSEA OR VOMITING Stop: 12/28/24 01:53 Pantoprazole Sodium (Pantoprazole Inj 40 Mg Vial) 40 mg IVP QDAY [facility] Stop: 12/28/24 08:59 Discontinued Medications Fentanyl Citrate (Fentanyl Cit Inj 50 Mcg/Ml Amp 2ml) 12.5 mcg IV X1 ONE Stop: 11/27/24 20:18 Last Admin: 11/27/24 20:27 Dose: 12.5 mcg Fentanyl Citrate (Fentanyl Cit Inj 50 Mcg/Ml Amp 2ml) 25 mcg IV X1 ONE Stop: 11/27/24 22:25 Last Admin: 11/27/24 22:48 Dose: 25 mcg Sodium Chloride (Ns) 1,000 mls @ 999 mls/hr IV .Q1H1M ONE Stop: 11/27/24 20:01 Last Infusion: 11/27/24 20:35 Dose: Infused Sodium Chloride (Ns) 1,000 mls @ 999 mls/hr IV .Q1H1M ONE Stop: 11/27/24 23:26 Last Infusion: 11/27/24 23:48 Dose: Infused Piperacillin Sod/Tazobactam (Sod 3.375 gm/ Sodium Chloride) 50 mls @ 100 mls/hr IV X1 ONE Stop: 11/27/24 23:38 Last Infusion: 11/27/24 23:50 Dose: Infused Ondansetron HCl (Ondansetron Inj 2 Mg/Ml Inj 2 Ml) 4 mg IV X1 ONE; Protocol Stop: 11/27/24 19:04 Last Admin: 11/27/24 19:34 Dose: 4 mg Ondansetron HCl (Ondansetron Inj 2 Mg/Ml Inj 2 Ml) 4 mg IV X1 ONE; Protocol Stop: 11/27/24 20:34 Last Admin: 11/27/24 20:46 Dose: 4 mg Assessment & Plan Plan In summary: 84-year-old female with PMHx of HTN, IDDM, peripheral neuropathy, chronic OPIOID use, multiple abdominal surgery with recurrent SBO, presenting with 3 days of abdominal pain, nausea and vomiting. Admitted for high-grade SBO seen on CT. Dr. Hines was consulted who recommended NG tube for now, and starting GASTROGRAFIN when nausea and vomiting controlled. Appreciate recommendations from general surgery High-grade SBO Recurrent SBO Presenting with 3 days of nausea, vomiting, and abdominal pain. Last bowel movement was 3 days ago and was watery. Had 2 similar episodes. Last 1 was 2 years ago, resolved with conservative management. CT showed high-grade mechanical obstruction. No signs of peritonitis on exam. Dr. Hines consulted, recommended NG suction for now. To start GASTROGRAFIN once patient can tolerate. Continues to have episodes of vomiting and nausea. ? N.p.o. ? NG tube suction ? Continue ZOFRAN and REGLAN for N/V ? Continue TYLENOL and DILAUDID 0.25 mg q.6h. ? Start GASTROGRAFIN study in a.m. if N/V controlled ? Follow-up a.m. abdominal x-ray ? Continue maintenance fluid Prerenal RIKKI In settings of volume depletion. CR 2.0 on admission ? IV fluid maintenance ? Renally dose meds, avoid overdiuresis and NEPHROTOXINS ? Daily CMP Reactive leukocytosis In settings of acute illness. Afebrile. WBCs 22. Anticipate resolution with pain control ? Daily CBC IDDM Last A1c 8.3 from 12/2023. Admission GLUCOSE 348. ? Continued home GLARGINE 15 units HS ? INSULIN sliding scale ? Accu-Cheks Peripheral neuropathy Consider resuming home PREGABALIN 75 mg BID, GABAPENTIN 300 mg TID, ROPINIROLE 0.5 mg daily once tolerating oral intake. HTN Tachycardia Has history of unmedicated hypertension. BP 140/83, HR 103, likely reactive. Anticipate improvement with pain control. No palpitations, chest pain or shortness of breath. ? Daily vitals Eczema Takes BENADRYL 1-2 mg q.4h. as needed for itching. ? Started BENADRYL 4.5 mg IV q.6h. PRN Incidental finding CT abdomen showed pneumobilia, likely in settings of SBO. ? Recommended outpatient monitoring. Health maintenance Diet: NPO GI prophylaxis: PROTONIX DVT prophylaxis: HEPARIN Antibiotics: Not indicated CODE STATUS: Full code Disposition: Pending SBO resolution. Patient case was discussed with attending, Sandi Tim MD. Ernst Veloz DO PGYI Attending Provider Attestation/Addendum I attest that I was physically present for the evaluation, physical examination, lab and imaging review of the patient with the residents. I discussed the case with the residents and agree with the findings and plans of care as documented above. Patient is an 84 years old female with past medical history of hypertension, diabetes mellitus, peripheral neuropathy, chronic opiate use, multiple abdominal surgeries, recurrent SBO who presented to the ED with complaint of 3 days of abdominal pain, nausea and vomiting. She also complains of abdominal distention. Patient had diarrhea 3 days back following which she stopped having bowel movements. In the ED, blood pressure was 163/96, heart rate 108 on presentation. Lab results showed WBC of 22, creatinine 2.0, glucose 348. UA showed WBC of 19 and positive leukocyte esterase but patient denied any urinary symptoms. CTA abdomen was done which showed high-grade mechanical small bowel obstruction. General surgery was contacted by ED who recommended NG tube suction and n.p.o. They also recommended Gastrografin once patient's nausea vomiting is controlled. We will start patient on IV Zofran and Reglan as needed for nausea. Also added analgesics for pain. We will also continue with maintenance IV hydration. Once patient's nausea/vomiting is controlled, we will start with Gastrografin study. We will also start patient on insulin sliding scale along with Lantus for her diabetes mellitus. Plan to resume her oral home medications after she is able to tolerate diet. Stefanie Tim MD
--- NOTE | 2024-11-28 02:08 | XR_ITS ---
Examination: AP chest single view Technique: AP portable upright chest single view Exam date and time: November 28, 2024 0211 hrs. Comparison December 06, 2022 Indications: Post orogastric tube placement. Findings: Orogastric tube sidehole at the GE junction Elevation left hemidiaphragm [id number] with subsegmental atelectasis left base Normal heart size Impression: Advance the orogastric tube 7 cm
[2024-11-28] MEDS: SODIUM CHLORIDE 0.9% 1000 ML 1,000 ML 125 ML IV ×3 (02:32→23:35)
[2024-11-28] MEDS: METOCLOPRAMIDE INJ 5 MG/ML VIAL 2 ML IVP ×3 (04:07→18:19)
[2024-11-28] MEDS: HYDROmorphone INJ 2 MG/ML VIAL 0.25 MG IVP ×2 (04:07→18:20)
[2024-11-28 04:59] LABS: Basophils % (Auto) 0 % (0-2.5); Eosinophils % (Auto) 0 % (0-10); Hematocrit 39.9 % (36.0-46.0); Hemoglobin 12.8 g/dL (12.0-16.0); Immature Granulocytes % (Auto) 1 % (0-0); Immature Granulocytes Auto 0.06 Thou/mm3 (0.00-0.00); Lymphocytes # (Auto) 1.4 Thou/mm3 (1.0-4.8); Lymphocytes % (Auto) 12 % (10-50); Mean Corpuscular HGB Conc 32.1 g/dl (31.0-37.0); Mean Corpuscular Hemoglobin 26.3 pg (25.0-35.0); Mean Corpuscular Volume 82 fL (80-100); Monocytes # (Auto) 1.1 Thou/mm3 (0.0-0.8); Monocytes % (Auto) 9 % (0-12); Neutrophils # (Auto) 9.4 Thou/mm3 (1.8-7.7); Neutrophils % (Auto) 78 % (37-80); Nucleated Red Blood Cell % 0 /100 WBC (0); Platelet Count 449 Thou/mm3 (140-440); RDW Standard Deviation 48.5 fL (36.4-46.3); Red Blood Count 4.87 Miln/mm3 (4.00-5.20)
--- NOTE | 2024-11-28 06:00 | XR_ITS ---
Examination: Abdomen AP single view Technique: AP portable supine abdomen, single view Exam date and time: November 28, 2024 0308 hrs. Indications: Abdominal pain and distention this week Findings: Distended bowel loops which appear to be small bowel Orogastric tube in the stomach No free air Impression: Distended small bowel loops
[2024-11-28 06:05] LABS: Alanine Aminotransferase 14 U/L (10-49); Albumin, Serum 4.1 gm/dL (3.4-4.8); Albumin/Globulin Ratio 1.5 (1.2-2.2); Alkaline Phosphatase 137 U/L (46-116); Anion Gap 11 (7-16); Aspartate Amino Transferase 18 U/L (0-34); BUN/Creatinine Ratio 17 Ratio (12-20); Bilirubin,Total 0.7 mg/dL (0.3-1.2); Blood Urea Nitrogen 34 mg/dL (9-23); Calcium 8.5 mg/dL (8.3-10.6); Calcium (Corrected) 8.5 mg/dL (8.5-10.1); Carbon Dioxide 23.1 mMol/L (20.0-31.0); Chloride 104 mMol/L (98-107); Estimated Creatinine Clearance 21.1 mL/min (>60); Globulin 2.8 gm/dL (2.3-3.5); Glucose 335 mg/dL (74-106); Magnesium 1.9 mg/dL (1.6-2.6); Osmolality,Calculated 296 (275-295); Phosphorous 4.9 mg/dL (2.4-5.1); Potassium 4.5 mMol/L (3.4-5.1); Sodium 138 mMol/L (136-145); Total Protein 6.9 gm/dL (5.7-8.2); eGFR 24 See Note
[2024-11-28] MEDS: HEPARIN SOD INJ 5000 UNIT/ML VIAL SC ×3 (06:29→23:36)
--- NOTE | 2024-11-28 07:46 | PD.SURCONS ---
HPI Consult details Consult date: 11/28/24 Reason for consultation narrative: Patient was seen in consultation because of small bowel obstruction. History of present illness: History of present illness revealed that the patient was having abdominal pain associated with vomiting on both Friday and Friday. She had a last bowel movement on Friday. She has had a similar pain in the past and has been admitted couple of times in this hospital but resolved without need for any surgery. Patient has had multiple abdominal surgery including appendicitis hysterectomy and open cholecystectomy. She also has had multiple back surgeries and hip surgeries with a lot of hardware. Patient lives alone and other medical problem consist of diabetes and hypertension Past Medical History Past Medical History NEUROLOGIC: Positive Migraine; Negative Neurological Disorders or Seizures CARDIAC: Positive Cardiac Disorders, Edema, Hypertension and Varicose Veins; Negative Congestive Heart Failure RESPIRATORY: Positive Bronchitis and Pneumonia; Negative Chronic Obstructive Pulmonary Disease (COPD), Asthma or Tuberculosis GASTROINTESTINAL: Positive Gastrointestinal Disorders, Gall Bladder Disease, Ulcer and Gastroesophageal Reflux Disease; Negative Hepatitis GENITOURINARY: Negative Genitourinary Disorders, Renal Disease or Kidney Stones REPRODUCTIVE: Positive Previous Pregnancies MUSCULOSKELETAL: Positive Musculoskeletal Disorders, Arthritis and Fractures ENT: Positive Cataracts ENDOCRINE: Positive Endocrine Disorders and Diabetes Mellitus Type 2; Negative Diabetes Mellitus Type 1 HEMATOLOGIC: Negative Blood Disorders or Sickle Cell Disease PSYCHO/SOCIAL: Positive Depression and Anxiety OTHER HISTORY: Positive Falls, Chicken Pox, Measles, Mumps and Cancer; Negative Hospitalization, Blood Transfusions, Blood Transfusion Reaction, Anesthesia Reactions, Chemotherapy or Radiation Therapy Family History FAMILY HISTORY: Negative Family Cardiac Disorders Surgical History SURGICAL: Positive Tonsillectomy, Joint Replacement, Hysterectomy and Tubal Ligation; Negative Cardiac Surgery Social History SMOKING STATUS: Never smoker SECOND HAND EXPOSURE: No SUBSTANCE USE: does not use Meds Home Medications and Allergies Home Medications ?Medication ?Instructions ?Recorded ?Confirmed ?Type alprazolam 0.5 mg tablet 0.5 mg PO QDAY PRN Anxiety 10/13/19 05/05/24 History hydrocodone 7.5 mg-acetaminophen 1 tab PO DAILY PRN Pain 10/13/19 05/05/24 History 325 mg tablet diphenhydramine HCl 25 mg tablet 25 mg PO Q4-5H PRN Allergy Symptoms 01/03/21 05/05/24 History (Banophen) lansoprazole 30 mg capsule,delayed 30 mg PO QDAY 01/03/21 05/05/24 History release (Prevacid) gabapentin 300 mg capsule 300 mg PO TID 08/08/22 05/05/24 History (Neurontin) insulin glargine 100 unit/mL (3 16 unit subcut DAILY 08/08/22 05/05/24 History mL) subcutaneous pen (Basaglar KwikPen U-100 Insulin) Allergies Allergy/AdvReac Type Severity Reaction Status Date / Time No Known Allergies Allergy Verified 08/09/22 16:16 Exam Vital Signs Temp Pulse Resp BP Pulse Ox O2 Del Method O2 Flow Rate 98.1 F 105 H 18 112/66 95 Nasal Cannula 2 11/28/24 02:00 11/28/24 06:19 11/28/24 06:19 11/28/24 06:19 11/28/24 06:19 11/28/24 06:19 11/28/24 06:19 Narrative Exam Physical examination revealed a an elderly lady who appeared to be 84 years old and thin she is about 5 foot 7 inches tall weighing her 160 pounds. Her vital signs are normal other than the tachycardia with a heart rate around around 105 Routine Abdominal Exam Comments: Examination of the abdomen showed multiple surgical scar from subcostal region as well as lower midline and right paramedian from previous surgery. Patient is surprisingly not very distended and her bowel sounds are absent. Rectal deferred because of her position of lying in supine position not able to turn around Routine Rectal Exam Comments: Deferred Routine Exam Comments: Deferred Results Results: Laboratory Laboratory Narrative: Patient's laboratory workup showed leukocytosis of 22,000 yesterday now down to 12,000. Chemistry is within normal limits Results: Imaging Imaging narrative: CT scan of the abdomen showed high-grade small bowel obstruction Assessment & Plan Additional Assessment Additional comments: Impression: High-grade small bowel obstruction possibly due to adhesions Diabetes mellitus Hypertension Multiple surgeries in the past Plan Plan: There are significant dilated loops of small bowel and raising a concern for bowel obstruction. Most likely patient has adhesions which is causing him. After the NG tube was inserted she said she has no more pain I have no records about how much she drained. At the present time there is no drainage in the NG tube. We shall arrange for Gastrografin small bowel series to see if it opens up. If it does not patient will require surgery.
[2024-11-28] MEDS: INSULIN LISPRO (AdmeLOG) 1 UNIT/0.01 ML UNIT SC ×2 (07:47→14:00)
[2024-11-28] MEDS: INSULIN GLARGINE (Lantus) 5 UNIT/0.05 ML (PER 5 UNITS) 16 UNIT SC (10:15)
[2024-11-28] MEDS: PANTOPRAZOLE INJ 40 MG VIAL IVP (10:15)
[2024-11-28] MEDS: ONDANSETRON INJ 2 MG/ML INJ 2 ML 4 MG IV (15:53)
[2024-11-29] VITALS (7 sets, daily range): BP systolic 140–180; BP diastolic 66–86; PULSE 74–102; RESP 17–26; TEMP 36.2–37.1; O2SAT 92–100
[2024-11-29 05:50] LABS: Basophils # (Auto) 0.1 Thou/mm3 (0.0-0.2); Basophils % (Auto) 1 % (0-2.5); Eosinophils # (Auto) 0.2 Thou/mm3 (0.0-0.5); Eosinophils % (Auto) 2 % (0-10); Hematocrit 36.7 % (36.0-46.0); Hemoglobin 11.3 g/dL (12.0-16.0); Immature Granulocytes % (Auto) 0 % (0-0); Immature Granulocytes Auto 0.02 Thou/mm3 (0.00-0.00); Lymphocytes # (Auto) 2.7 Thou/mm3 (1.0-4.8); Lymphocytes % (Auto) 29 % (10-50); Mean Corpuscular HGB Conc 30.8 g/dl (31.0-37.0); Mean Corpuscular Hemoglobin 26.2 pg (25.0-35.0); Mean Corpuscular Volume 85 fL (80-100); Monocytes # (Auto) 1.2 Thou/mm3 (0.0-0.8); Monocytes % (Auto) 13 % (0-12); Neutrophils # (Auto) 5.1 Thou/mm3 (1.8-7.7); Neutrophils % (Auto) 55 % (37-80); Nucleated Red Blood Cell % 0 /100 WBC (0); Platelet Count 373 Thou/mm3 (140-440); RDW Standard Deviation 51.8 fL (36.4-46.3); Red Blood Count 4.31 Miln/mm3 (4.00-5.20); White Blood Count 9.2 Thou/mm3 (3.6-11.0)
[2024-11-29 06:18] LABS: Alanine Aminotransferase 15 U/L (10-49); Albumin, Serum 3.8 gm/dL (3.4-4.8); Albumin/Globulin Ratio 1.5 (1.2-2.2); Alkaline Phosphatase 109 U/L (46-116); Anion Gap 10 (7-16); Aspartate Amino Transferase 24 U/L (0-34); BUN/Creatinine Ratio 28 Ratio (12-20); Bilirubin,Total 0.4 mg/dL (0.3-1.2); Blood Urea Nitrogen 34 mg/dL (9-23); Calcium (Corrected) 8.2 mg/dL (8.5-10.1); Carbon Dioxide 25.2 mMol/L (20.0-31.0); Chloride 114 mMol/L (98-107); Creatinine (Component) 1.2 mg/dL (0.6-1.3); Estimated Creatinine Clearance 35.1 mL/min (>60); Globulin 2.5 gm/dL (2.3-3.5); Glucose 150 mg/dL (74-106); Magnesium 2.1 mg/dL (1.6-2.6); Osmolality,Calculated 306 (275-295); Phosphorous 3.3 mg/dL (2.4-5.1); Potassium 4.5 mMol/L (3.4-5.1); Sodium 149 mMol/L (136-145); Total Protein 6.3 gm/dL (5.7-8.2); eGFR 45 See Note
--- NOTE | 2024-11-29 06:31 | XR_ITS ---
Examination: Abdomen 2 views TECHNIQUE: A supine AP upright abdomen 2 views Exam date and time: November 29, 2024 0712 hours INDICATIONS: 17 hour delayed film post small bowel series yesterday, abdominal pain and distention FINDINGS: Air distended small bowel loops. However, contrast is now almost entirely in the colon IMPRESSION: Negative for complete small bowel obstruction
[2024-11-29] MEDS: SODIUM CHLORIDE 0.9% 1000 ML 1,000 ML 125 ML IV ×2 (07:22→17:59)
[2024-11-29] MEDS: HEPARIN SOD INJ 5000 UNIT/ML VIAL SC ×3 (07:23→22:00)
[2024-11-29] MEDS: PANTOPRAZOLE INJ 40 MG VIAL IVP (09:13)
[2024-11-29] MEDS: INSULIN GLARGINE (Lantus) 5 UNIT/0.05 ML (PER 5 UNITS) 16 UNIT SC (09:14)
[2024-11-29] MEDS: ONDANSETRON INJ 2 MG/ML INJ 2 ML 4 MG IV (10:49)
--- NOTE | 2024-11-29 11:56 | ESPR_ITS ---
<Statement entered by Pineda Perez MD - 12/03/24 16:22> I reviewed above note and agree with findings and plans. I have also personally examined the patient with medicine team and went over assessment and plan with medical team including spring internship and resident physician. Documentation for date of: 11/29/24 Subjective Subjective Interval history: 11/29/2024: Pt examined at bedside today. No acute overnight events. Pt reports she does feel nauseous despite Zofran. She is requesting additional anti- emetics. She has been continuing with NG tube with LIS, and was able to have ~75 cc removed. There are no plans for surgery at this time. Will repeat gastrograffin series. No other complaints at this time. Exam Vital Signs Temp Pulse Resp BP Pulse Ox O2 Del Method O2 Flow Rate 97.2 F 84 18 156/66 H 94 L Nasal Cannula 3 11/29/24 08:00 11/29/24 08:00 11/29/24 08:00 11/29/24 08:00 11/29/24 08:00 11/29/24 08:00 11/29/24 08:00 Narrative Exam General: AAOx3, NAD, HEENT: Dry mucous membranes, conjunctiva clear, EOMI, PERRLA, Cardiovascular: S1, S2, radial pulses +2 bilat, RRR Pulmonary: CTAB bilat no cough, no wheezing GI: No distension or pain upon palpation, however minimal to no bowel sounds present Extremities: No presence of trace or pitting edema in lower extremities bilaterally, dorsalis pedis pulses +2 bilaterally Neuro: AAOx3, no focal motor or sensory deficits in the UE or LE bilat Psych: Cooperative Objective Labs 11/29/24 05:14 11/29/24 05:14 Labs: Laboratory Results - last 24 hr 11/29/24 05:14 WBC 9.2 RBC 4.31 Hgb 11.3 L Hct 36.7 MCV 85 MCH 26.2 MCHC 30.8 L RDW Std Deviation 51.8 H Plt Count 373 D Neut % (Auto) 55 Lymph % (Auto) 29 [place] % (Auto) 13 H Eos % (Auto) 2 Baso % (Auto) 1 Neut # (Auto) 5.1 Lymph # (Auto) 2.7 [place] # (Auto) 1.2 H Eos # (Auto) 0.2 Baso # (Auto) 0.1 Immature Gran # (Auto) 0.02 H Absolute Nucleated RBC 0.00 Immature Gran % 0 Nucleated RBC % 0 Sodium 149 H D Potassium 4.5 Chloride 114 H Carbon Dioxide 25.2 Anion Gap 10 BUN 34 H Creatinine 1.2 D Estim Creat Clear Calc 35.1 L eGFR 45 L BUN/Creatinine Ratio 28 H Glucose 150 H D Calculated Osmolality 306 H Calcium 8.0 L Corrected Calcium 8.2 L Phosphorus 3.3 Magnesium 2.1 Total Bilirubin 0.4 AST 24 ALT 15 Alkaline Phosphatase 109 D Total Protein 6.3 Albumin 3.8 Globulin 2.5 Albumin/Globulin Ratio 1.5 Quality Measures Quality Measures VTE prophylaxis Advance care planning discussed with:: patient Assessment & Plan Assessment Current Active Medications: Generic Name Dose Route Start Last Admin Trade Name Freq PRN Reason Stop Dose Admin Acetaminophen 650 mg 11/28/24 01:54 Acetaminophen 325 Mg Tablet PO 12/28/24 01:53 Q6H PRN PAIN SCALE 1-3 (mild Acetaminophen 650 mg 11/28/24 01:54 Acetaminophen 325 Mg Tablet PO 12/28/24 01:53 Q6H PRN Fever >100 Dextrose 25 ml 11/28/24 01:54 Dextrose 50%-Water Inj 50 Ml Syringe IV 12/28/24 01:53 Q15MIN PRN BG 50-70 responsive npo pt Dextrose 50 ml 11/28/24 01:54 Dextrose 50%-Water Inj 50 Ml Syringe IV 12/28/24 01:53 Q15MIN PRN BG <50 OR BG <70 & pt unresponsive Diphenhydramine HCl 12.5 mg 11/28/24 01:59 Diphenhydramine Inj 50 Mg/Ml Vial IVP 12/28/24 01:58 Q6H PRN ITCHING Glucagon 1 mg 11/28/24 01:54 Glucagon Inj 1 Mg Vial IM Q15MIN PRN BG <70, and no IV access Heparin Sodium (Porcine) 5,000 unit 11/28/24 06:00 11/29/24 07:23 Heparin Sod Inj 5000 Unit/Ml Vial SC 12/12/24 05:59 5,000 unit Q8HR HARINI Administration Hydromorphone HCl 0.25 mg 11/28/24 17:55 11/28/24 18:20 Hydromorphone Inj 2 Mg/Ml Vial IVP 12/03/24 02:53 0.25 mg Q6H PRN Administration PAIN SCALE 4-10(Mod-Sev Sodium Chloride 1,000 mls @ 125 mls/hr 11/28/24 02:04 11/29/24 07:22 Ns IV 12/28/24 02:03 125 mls/hr .Q8H HARINI Administration Insulin Glargine 16 unit 11/28/24 09:00 11/29/24 09:14 Insulin Glargine (Lantus) 5 Unit/0.05 Ml (Per 5 Units) SC 12/28/24 08:59 16 unit QDAY HARINI Administration Insulin Human Lispro 0 unit 11/28/24 07:30 11/29/24 11:50 Insulin Lispro (Admelog) 1 Unit/0.01 Ml Unit SC 12/28/24 07:29 Not Given AC [facility] Protocol Lactobacillus Rhamnosus 1 cap 11/29/24 12:00 Lactobacillus Rhamnosus 1 Cap PO 12/29/24 11:59 BID HARINI Ondansetron HCl 4 mg 11/28/24 01:54 11/29/24 10:49 Ondansetron Inj 2 Mg/Ml Inj 2 Ml IV 12/28/24 01:53 4 mg Q6H PRN Administration NAUSEA OR VOMITING Protocol Pantoprazole Sodium 40 mg 11/28/24 09:00 11/29/24 09:13 Pantoprazole Inj 40 Mg Vial IVP 12/28/24 08:59 40 mg QDAY HARINI Administration Prochlorperazine Edisylate 10 mg 11/29/24 12:00 Prochlorperazine Inj 5 Mg/Ml Vial 2 Ml IVP 12/29/24 11:59 Q6H [facility] Protocol Plan Assessment 84-year-old female with PMHx of HTN, IDDM, peripheral neuropathy, chronic OPIOID use, multiple abdominal surgery with recurrent SBO, presenting with 3 days of abdominal pain, nausea and vomiting. Admitted for high-grade SBO seen on CT. Dr. Hines was consulted who recommended NG tube for now, and starting GASTROGRAFIN when nausea and vomiting controlled. #High-grade SBO #Recurrent SBO At this time, pt has had NG tube removed Nausea has improved with Compazine Last Gastrografin study shows no SBO No surgery at this time Plan: ? General surgery on consult, appreciate recs ? Clear liquid diet ? Continue antiemetics including zofran and compazine ? Continue TYLENOL and DILAUDID 0.25 mg q.6h. Prerenal RIKKI, improving Cr 2.0 -> 1.2 today Plan: - Continue with encouraging oral intake ? Renally dose meds, avoid overdiuresis and NEPHROTOXINS ? Daily CMP Reactive leukocytosis, resolved IDDM Last A1c 8.3 from 12/2023. Admission GLUCOSE 348. ? Continued home GLARGINE 15 units HS ? INSULIN sliding scale ? Accu-Cheks Peripheral neuropathy Consider resuming home PREGABALIN 75 mg BID, GABAPENTIN 300 mg TID, ROPINIROLE 0.5 mg daily once tolerating oral intake. HTN Tachycardia Has history of unmedicated hypertension. BP 140/83, HR 103, likely reactive. Anticipate improvement with pain control. No palpitations, chest pain or shortness of breath. ? Daily vitals Eczema Takes BENADRYL 1-2 mg q.4h. as needed for itching. ? Started BENADRYL 4.5 mg IV q.6h. PRN Incidental finding CT abdomen showed pneumobilia, likely in settings of SBO. ? Recommended outpatient monitoring. #Health Maintenance Disposition: Med-tele DVT prophylaxis: heparin GI prophylaxis:Protonix Diet: Clear Liquid CODE STATUS: Full Patient seen and care discussed with my senior resident, Dr. Rollins , and my attending physician, Dr. Chris Golden, PGY-1
--- NOTE | 2024-11-29 12:57 | PC.SS ---
Patient is alert/oriented. She resides alone. Patient is independent with ADL's. Careprovider was present and assisted in brief history of patient. Patient uses a walker and electric scooter as needed. Patient resides at [facility] living [facility]. Patient has an [facility] worker who comes in to work with her 6 hours daily from M-F. Patient careprovider is Yary. She provides transportation assistance, sets up meds, groceries, meal prep, etc. Patient son is the alt medical decision maker. He resides out of [facility]. PCP: Dr. Dominguez and last appt was last month. Patient was admitted for high grade sbo. Patient d/c plan is to return home.
[2024-11-29] MEDS: PROCHLORPERAZINE INJ 5 MG/ML VIAL 2 ML 10 MG IVP ×3 (14:50→23:26)
--- NOTE | 2024-11-29 15:30 | PC.NURSE ---
DC the NG per order and MD schofield to have pt. ice chips
--- NOTE | 2024-11-29 15:36 | PD.SURPROG ---
Documentation for date of: 11/29/24 Subjective Subjective Brief History: History of present illness revealed that the patient was having abdominal pain associated with vomiting on both Friday and Friday. She had a last bowel movement on Friday. She has had a similar pain in the past and has been admitted couple of times in this hospital but resolved without need for any surgery. Patient has had multiple abdominal surgery including appendicitis hysterectomy and open cholecystectomy. She also has had multiple back surgeries and hip surgeries with a lot of hardware. Patient lives alone and other medical problem consist of diabetes and hypertension Exam Vital Signs Temp Pulse Resp BP Pulse Ox O2 Del Method O2 Flow Rate 97.4 F 74 18 140/72 H 100 Nasal Cannula 3 11/29/24 12:00 11/29/24 12:00 11/29/24 12:00 11/29/24 12:00 11/29/24 12:11/29/24 08:00 11/29/24 08:00 Results Results: Imaging Additional studies: Impression Assessment & Plan Assessment Additional comments: Impression: Patient has no small bowel obstruction Plan Plan: We can DC the NG tube and feed around and then discharge her after tolerating diet. I will sign of the case
[2024-11-29] MEDS: LACTOBACILLUS RHAMNOSUS 1 CAP PO (21:58)
[2024-11-30] MEDS: SODIUM CHLORIDE 0.9% 1000 ML 1,000 ML 125 ML IV ×2 (00:01→09:54)
[2024-11-30] MEDS: MELATONIN 3 MG TABLET PO (00:01)
[2024-11-30 04:00] VITALS: BP 149/90; PULSE 93; RESP 17; TEMP 37.2; O2SAT 95
[2024-11-30] MEDS: PROCHLORPERAZINE INJ 5 MG/ML VIAL 2 ML 10 MG IVP ×2 (06:21→15:00)
[2024-11-30] MEDS: HEPARIN SOD INJ 5000 UNIT/ML VIAL SC ×2 (06:23→15:34)
[2024-11-30 08:00] VITALS: BP 165/82; PULSE 88; RESP 17; TEMP 36.3; O2SAT 97
[2024-11-30] MEDS: INSULIN GLARGINE (Lantus) 5 UNIT/0.05 ML (PER 5 UNITS) 16 UNIT SC (09:14)
[2024-11-30] MEDS: LACTOBACILLUS RHAMNOSUS 1 CAP PO (09:14)
[2024-11-30 09:40] LABS: Basophils # (Auto) 0.1 Thou/mm3 (0.0-0.2); Basophils % (Auto) 1 % (0-2.5); Eosinophils # (Auto) 0.2 Thou/mm3 (0.0-0.5); Eosinophils % (Auto) 2 % (0-10); Hematocrit 34.8 % (36.0-46.0); Hemoglobin 11.1 g/dL (12.0-16.0); Immature Granulocytes % (Auto) 1 % (0-0); Immature Granulocytes Auto 0.06 Thou/mm3 (0.00-0.00); Lymphocytes % (Auto) 27 % (10-50); Mean Corpuscular HGB Conc 31.9 g/dl (31.0-37.0); Mean Corpuscular Hemoglobin 26.9 pg (25.0-35.0); Mean Corpuscular Volume 85 fL (80-100); Monocytes # (Auto) 0.8 Thou/mm3 (0.0-0.8); Monocytes % (Auto) 11 % (0-12); Neutrophils # (Auto) 4.4 Thou/mm3 (1.8-7.7); Neutrophils % (Auto) 59 % (37-80); Nucleated Red Blood Cell % 0 /100 WBC (0); Platelet Count 268 Thou/mm3 (140-440); RDW Standard Deviation 50.4 fL (36.4-46.3); Red Blood Count 4.12 Miln/mm3 (4.00-5.20); White Blood Count 7.4 Thou/mm3 (3.6-11.0)
[2024-11-30] MEDS: PANTOPRAZOLE INJ 40 MG VIAL IVP (09:54)
[2024-11-30 10:06] LABS: Alanine Aminotransferase 14 U/L (10-49); Albumin, Serum 3.7 gm/dL (3.4-4.8); Albumin/Globulin Ratio 1.6 (1.2-2.2); Alkaline Phosphatase 104 U/L (46-116); Anion Gap 10 (7-16); Aspartate Amino Transferase 26 U/L (0-34); BUN/Creatinine Ratio 14 Ratio (12-20); Bilirubin,Total 0.7 mg/dL (0.3-1.2); Blood Urea Nitrogen 11 mg/dL (9-23); Calcium 7.8 mg/dL (8.3-10.6); Carbon Dioxide 23.7 mMol/L (20.0-31.0); Chloride 105 mMol/L (98-107); Creatinine (Component) 0.8 mg/dL (0.6-1.3); Estimated Creatinine Clearance 52.7 mL/min (>60); Globulin 2.3 gm/dL (2.3-3.5); Glucose 179 mg/dL (74-106); Magnesium 1.4 mg/dL (1.6-2.6); Osmolality,Calculated 280 (275-295); Phosphorous 1.9 mg/dL (2.4-5.1); Sodium 139 mMol/L (136-145); eGFR > 60 See Note
--- NOTE | 2024-11-30 10:37 | PC.NURSE ---
PATIENT IRRITABLE THIS AM AT CHANGE OF SHIFT, REFUSED AM BLOOD DRAW. PATIENT IS A HARDSTICK AND HAD BEEN ATTEMPTED TWICE EARLIER. PATIENT INFORMED WOULD ALLOW TO REST AND THEY WOULD COME A LITTLE LATER. PATIENT WAS STILL DIFFICULT BUT COOPERATIVE DURING MED PASS.
--- NOTE | 2024-11-30 10:48 | CHAP ---
Patient was visited by a Spiritual Care Volunteer on 11/30/2024 between 0900 and 1000 and received encouragement, comfort, and/or prayer.
[2024-11-30 12:00] VITALS: BP 166/94; PULSE 89; RESP 16; TEMP 36.6; O2SAT 92
--- NOTE | 2024-11-30 15:18 | PC.SS ---
Follow up note: Patient has d/c orders for today. She will return home and has her careprovider in place to assist.
[2024-11-30 16:00] VITALS: BP 168/96; PULSE 96; RESP 16; TEMP 36.2; O2SAT 92
--- NOTE | 2024-11-30 16:17 | ESDS_ITS ---
<Statement entered by Pineda Perez MD - 12/07/24 17:34> I reviewed above note and agree with findings and plans. I have also personally examined the patient with medicine team and went over assessment and plan with medical team including purchasing intern and resident physician. Planned Discharge Date 11/30/24 DS: Providers Provider Date of admission: 11/28/24 01:54 Primary care physician: Bharathi Dominguez MD Admitting Provider: Stefanie Tim MD Attending Provider on Admission: Pineda Perez MD Consults: 11/28/24 01:55 Consult to General Surgery Routine Comment: high-grade SBO Consulting Provider: Juana Smith Attending Provider on DC: Pineda Perez MD Discharging Provider: Pineda Perez MD DS: Diagnosis Problem List Completed Was Problem List Reviewed/Reconciled?: Yes Hospital Course Hospital Course Hospital course: Luciana is a 84 y/o female with PMHx of HTN, IDDM, peripheral neuropathy, chronic OPIOID use, multiple abdominal surgery with recurrent SBO, who was admitted for SBO. Pt was experiencing abdominal distension with pain, nausea and vomiting. Pt also reported poor oral intake as well. Pt came to the ED afebrile, with a blood pressure of 160/96, heart rate 108, respiratory of 19, saturating at 97% room air. She was worked up was found to have a white count of 22, creatinine of 2.0, glucose of 348, calcium of 10.3. Urinalysis showed leukocyte esterase. CT abdomen showed high-grade mechanical small bowel obstruction chest x-ray was unremarkable. Patient was admitted for SBO management. General surgery was consulted who had recommended with NG tube. NG tube was inserted with low intermittent suction into patient and had improved patient's symptoms and was able to remove contents from abdomen. Small bowel series with Gastrografin was then ordered which showed resolution of small bowel obstruction. Patient's nausea and vomiting was resolved with Zofran and Compazine. Patient's diet was advanced and patient was able to tolerate oral food. Patient was able to have a bowel movement as well. Patient was found to have E. coli on urine culture, however she denies any urinary symptoms and appears to be colonized, will not send out any antibiotics for this, however we will give her fosfomycin x1. Patient was then recommended to follow-up outpatient PCP and patient is to be discharged to home with her collection systems technician. Patient also recommended to follow-up for pneumobilia, incidental finding, likely related to SBO. Follow-up with PCP within 1 week Continue taking medicines as prescribed Follow-up with primary care in regards to pneumobilia seen on CT abdomen pelvis incidental finding #High-grade SBO #Recurrent SBO #Asymptomatic bacteriuria #Prerenal RIKKI, resolved #Reactive leukocytosis, resolved show #IDDM #Peripheral neuropathy #HTN #Tachycardia #Eczema #Pneumobilia, incidental finding Patient seen and care discussed with my senior resident, Dr. Olivia, and my attending physician, Dr. Chris Golden, PGY-1 Time Spent with Patient Time attestation: Total time spent providing and/or coordinating discharge services: Time spent: Greater than 30 minutes Exam Vital Signs Temp Pulse Resp BP Pulse Ox O2 Del Method O2 Flow Rate 97.8 F 89 16 166/94 H 92 L Room Air 3 11/30/24 12:11/30/24 12:11/30/24 12:11/30/24 12:11/30/24 12:11/30/24 12:11/30/24 12:00 Narrative Exam General: AAOx3, NAD, HEENT: Dry mucous membranes, conjunctiva clear, EOMI, PERRLA, Cardiovascular: S1, S2, radial pulses +2 bilat, RRR Pulmonary: CTAB bilat no cough, no wheezing GI: No distension or pain upon palpation, however minimal to no bowel sounds present Extremities: No presence of trace or pitting edema in lower extremities bilaterally, dorsalis pedis pulses +2 bilaterally Neuro: AAOx3, no focal motor or sensory deficits in the UE or LE bilat Psych: Cooperative Discharge Plan Plan Patient Disposition: HOME (Self Care) Disposition Comment: MT Patient condition on transfer: Stable Prescriptions/Referrals Prescriptions/Med Rec: New Lactobacillus acidophilus 20 billion cell capsule 100 mmu cells PO QDAY Qty: 30 0RF psyllium husk [Fiber (psyllium husk)] 0.4 gram capsule 0.4 g PO QDAY PRN (Reason: constipation) Qty: 30 0RF Continued alprazolam 0.5 mg tablet 0.5 mg PO QDAY PRN (Reason: Anxiety) Patient Comments: TAKE ONE TABLET BY MOUTH EVERY DAY NEEDED FOR ANXIETY pregabalin 75 mg capsule Patient Comments: TAKE 1 CAPSULE BY MOUTH TWICE A DAY ropinirole 0.5 mg tablet Patient Comments: 1 tablet by mouth every day. diphenhydramine HCl [Banophen] 25 mg capsule Patient Comments: TAKE ONE CAPSULE BY MOUTH EVERY 4 TO 6 HOURS NEEDED. insulin glargine [Basaglar KwikPen U-100 Insulin] 100 unit/mL (3 mL) insulin pen 16 unit subcut DAILY Patient Comments: INJECT 16 UNITS SUBCUTANEOUSLY TWICE DAILY FOR DIABETES Rx Instructions: PER SLIDING SCALE PER PT. Discontinued hydrocodone-acetaminophen 7.5-325 mg tablet 1 tab PO DAILY PRN (Reason: Pain) Patient Comments: TAKE ONE TABLET BY MOUTH EVERY DAY NEEDED FOR PAIN diphenhydramine HCl [Banophen] 25 mg Tablet 25 mg PO Q4-5H PRN (Reason: Allergy Symptoms) lansoprazole [Prevacid] 30 mg Capsule,Delayed Release(Dr/Ec) 30 mg PO QDAY gabapentin [Neurontin] 300 mg capsule 300 mg PO TID Patient Comments: TAKE ONE CAPSULE BY MOUTH THREE TIMES DAILY Referrals: Bharathi Dominguez MD [Primary Care Provider] - Patient/Caregiver Discharge Instructions Other Discharge Activity Instructions:: Follow-up with PCP within 1 week Continue taking medicines as prescribed Follow-up with primary care in regards to pneumobilia seen on CT abdomen pelvis incidental finding Take Fiber and probiotic as needed Print Language: Fijian Stand Alone Forms: [employer] Award Info., Patient Portal Info Letter Discharge Order Discharge Orders: Discharge (Routine); Ordered 11/30/24 Ordered By: Sherie Golden Quality Discharge Quality Measures VTE prophylaxis (Heparin)
== END 2024-11-30 18:25 | disposition home or self-care (01) | DRG 389 ==
LOC: SERX 22:58 → SERHOLD 11-28 02:33 → S3SX 11-28 15:29
PROVIDERS: Nurse Practitioner Family; Admitting Provider Student in an Organized Health Care Education/Training Program; Emergency Provider Emergency Medicine; PCP Internal Medicine; Visit Provider Internal Medicine
DX: K56.699 Other intestinal obstruction unspecified as to partial versus complete obstruction (principal); N17.9 Acute kidney failure, unspecified; E11.65 Type 2 diabetes mellitus with hyperglycemia; E11.42 Type 2 diabetes mellitus with diabetic polyneuropathy; E86.0 Dehydration; I10 Essential (primary) hypertension; L30.9 Dermatitis, unspecified; R82.71 Bacteriuria; D72.828 Other elevated white blood cell count; Z96.642 Presence of left artificial hip joint; Z90.710 Acquired absence of both cervix and uterus; Z79.891 Long term (current) use of opiate analgesic; Z90.49 Acquired absence of other specified parts of digestive tract; Z79.4 Long term (current) use of insulin; Z79.899 Other long term (current) drug therapy
CPT/HCPCS: 36415; 74018; 74019; 74177; 74250; 80053; 81001; 82010; 83690; 83735; 84100; 85025; 87077; 87086; 87186; 87400; 87811; 93225; 96361; 96365; 96372; 96374; 96375; 96376; 99285; A4649; J0780; J1643; J1815; J2405; J2470; J2543; J2765; J3010; J3490; J7030; J7050; Q9967; A9270

== ENCOUNTER → 2025-02-03 | Outpatient (CLI) | payer MEDICARE, MEDICAID, SELFPAY ==
[2025-02-03 11:04] LABS: Basophils # (Auto) 0.1 Thou/mm3 (0.0-0.2); Basophils % (Auto) 1 % (0-2.5); Eosinophils # (Auto) 0.2 Thou/mm3 (0.0-0.5); Eosinophils % (Auto) 3 % (0-10); Hematocrit 35.5 % (36.0-46.0); Hemoglobin 11.4 g/dL (12.0-16.0); Immature Granulocytes % (Auto) 0 % (0-0); Immature Granulocytes Auto 0.03 Thou/mm3 (0.00-0.00); Lymphocytes # (Auto) 2.3 Thou/mm3 (1.0-4.8); Lymphocytes % (Auto) 33 % (10-50); Mean Corpuscular HGB Conc 32.1 g/dl (31.0-37.0); Mean Corpuscular Hemoglobin 26.7 pg (25.0-35.0); Mean Corpuscular Volume 83 fL (80-100); Monocytes # (Auto) 0.5 Thou/mm3 (0.0-0.8); Monocytes % (Auto) 7 % (0-12); Neutrophils # (Auto) 3.8 Thou/mm3 (1.8-7.7); Neutrophils % (Auto) 56 % (37-80); Nucleated Red Blood Cell % 0 /100 WBC (0); Platelet Count 201 Thou/mm3 (140-440); RDW Standard Deviation 49.9 fL (36.4-46.3); Red Blood Count 4.27 Miln/mm3 (4.00-5.20); White Blood Count 6.8 Thou/mm3 (3.6-11.0)
[2025-02-03 11:22] LABS: Alanine Aminotransferase 16 U/L (10-49); Albumin, Serum 3.8 gm/dL (3.4-4.8); Albumin/Globulin Ratio 1.8 (1.2-2.2); Alkaline Phosphatase 139 U/L (46-116); Anion Gap 9 (7-16); Aspartate Amino Transferase 20 U/L (0-34); BUN/Creatinine Ratio 24 Ratio (12-20); Bilirubin,Total 0.5 mg/dL (0.3-1.2); Blood Urea Nitrogen 24 mg/dL (9-23); Calcium 8.8 mg/dL (8.3-10.6); Cardiac Risk Estimate 3.1 RATIO (3.7-5.6); Chloride 112 mMol/L (98-107); Cholesterol 193 mg/dL (132-200); Free T4 (Free Thyroxine) 1.11 ng/dL (0.89-1.76); Globulin 2.1 gm/dL (2.3-3.5); Glucose 215 mg/dL (74-106); Glucose Estimated Average 194 mg/dL (80-131); HDL Cholesterol 62 mg/dL (40-60); Hemoglobin A1C 8.4 % Hgb (4.8-6.0); LDL Cholesterol,Calculated 109 mg/dL (0-130); Osmolality,Calculated 296 (275-295); Potassium 4.6 mMol/L (3.4-5.1); Sodium 144 mMol/L (136-145); Thyroid Stimulating Hormone 0.76 uIU/mL (0.55-4.78); Total Protein 5.9 gm/dL (5.7-8.2); Triglycerides 108 mg/dL (30-150); Vitamin D 25 Hydroxy Total 37.8 ng/mL (7.3-40.2); eGFR 56 See Note
== END | disposition home or self-care (01) ==
LOC: COPL 10:13
PROVIDERS: PCP Internal Medicine; Referring Provider Internal Medicine; Visit Provider Internal Medicine
DX: I11.0 Hypertensive heart disease with heart failure (principal); E11.9 Type 2 diabetes mellitus without complications; E55.9 Vitamin D deficiency, unspecified; E03.9 Hypothyroidism, unspecified
CPT/HCPCS: 36415; 80053; 80061; 82306; 83036; 84439; 84443; 85025

== ENCOUNTER 2025-03-07 15:24 | Emergency (ER) | payer MEDICARE, MEDICAID, SELFPAY ==
[2025-03-07 15:38] VITALS: BP 133/70; PULSE 100; RESP 17; TEMP 36.1; O2SAT 95
--- NOTE | 2025-03-07 15:48 | XR_ITS ---
Examination: Ribs, left, with PA chest, 5 views Technique: Chest PA, RIBS AP, RPO, LPO, AP coned lower ribs 5 views Exam date and time: March 07, 2025 1634 hours INDICATIONS: Patient fell 2 days ago with injury to left chest, left rib pain Findings: Normal heart size No pneumothorax Prominent osteopenia Linear scarring in the left lower lung zone Prominent osteopenia Acute fracture left third rib anteriorly without significant displacement IMPRESSION: No pneumothorax Acute fracture left third rib anteriorly
--- NOTE | 2025-03-07 15:53 | PD.EDRME ---
Rapid Medical Screening Exam RME Arrival date/time: 03/07/25 15:24 84-year-old female with a history of type 2 diabetes, presents to the emergency room with a chief complaint of left rib pain after a ground-level fall that occurred yesterday afternoon. I have greeted and performed a focused initial assessment of this patient. A comprehensive ED assessment and evaluation of the patient, analysis of all test results, and completion of the medical decision making process will be conducted by additional ED providers. Chief Complaint: Fall Time Seen by Provider: 03/07/25 15:40 Vital signs: Vital Signs Temperature 97.0 F 03/07/25 15:38 Pulse Rate 100 03/07/25 15:38 Respiratory Rate 17 03/07/25 15:38 Blood Pressure 133/70 H 03/07/25 15:38 Pulse Oximetry (%) 95 03/07/25 15:38 Oxygen Delivery Method Room Air 03/07/25 15:38 Vital signs reviewed by provider: Yes
[2025-03-07] MEDS: HYDROcodone/APAP 5/325 TABLET 1 TAB PO (17:46)
[2025-03-07 18:18] VITALS: BP 149/87; PULSE 91; RESP 18; TEMP 36.1; O2SAT 95
--- NOTE | 2025-03-07 18:19 | PC.NURSE ---
PT BROUGHT INTO OLD TRIAGE FOR VS'S AND TO HAVE NIGHT MD JACKIE. PT VERY ANGRY STATING THE DOCTOR NEEDS TO GIVE ME SOMETHING STRONGER LIKE DEMEROL FOR MY PAIN, THAT PILL THEY GAVE ME DID NOTHING. INFORMED THAT DEMEROL IS NOT USED ANY MORE AND THE DOCTOR WILL BE IN TO TALK WITH HER ABOUT HER XRAY AND PAIN
--- NOTE | 2025-03-07 18:25 | XR_ITS ---
Examination: CT brain head without contrast. 2-D sagittal coronal reconstructions Date and time of exam:March 07, 2025 1838 hours, comparison June 21, 2024 INDICATIONS: Ground-level fall yesterday with injury to the head, head pain CTDI: vol (mGy):43.9 DLP: (mGycm):861 Technique: Multiple CT axial sections of the brain have been obtained, 5 mm slice thickness. Contrast has not been administered. 2-D sagittal, coronal reconstructions have been obtained Low dose protocols were performed. One or more of the following dose reduction techniques were used; automated exposure control, adjustment of the mA and/or KV according to patient size, use of iterative reconstruction technique. Findings: No significant ventricular enlargement. Intra-axial or extra-axial hemorrhage density is not seen. No mass effect or midline shift Basal cisterns are not remarkable. Fourth ventricle is midline. Cranial vault intact. Impression: Negative for acute hemorrhage, mass effect or midline shift
[2025-03-07] MEDS: KETOROLAC INJ 60 MG/2 ML VIAL 30 MG IM (18:31)
[2025-03-07 19:33] LABS: Basophils # (Auto) 0.1 Thou/mm3 (0.0-0.2); Basophils % (Auto) 1 % (0-2.5); Eosinophils # (Auto) 0.2 Thou/mm3 (0.0-0.5); Eosinophils % (Auto) 2 % (0-10); Hematocrit 35.6 % (36.0-46.0); Hemoglobin 11.3 g/dL (12.0-16.0); Immature Granulocytes % (Auto) 0 % (0-0); Immature Granulocytes Auto 0.03 Thou/mm3 (0.00-0.00); Lymphocytes # (Auto) 2.1 Thou/mm3 (1.0-4.8); Lymphocytes % (Auto) 23 % (10-50); Mean Corpuscular HGB Conc 31.7 g/dl (31.0-37.0); Mean Corpuscular Hemoglobin 27.1 pg (25.0-35.0); Mean Corpuscular Volume 85 fL (80-100); Monocytes # (Auto) 0.8 Thou/mm3 (0.0-0.8); Monocytes % (Auto) 9 % (0-12); Neutrophils # (Auto) 5.8 Thou/mm3 (1.8-7.7); Neutrophils % (Auto) 65 % (37-80); Nucleated Red Blood Cell % 0 /100 WBC (0); Platelet Count 323 Thou/mm3 (140-440); RDW Standard Deviation 50.6 fL (36.4-46.3); Red Blood Count 4.17 Miln/mm3 (4.00-5.20)
--- NOTE | 2025-03-07 19:45 | PD.EDFALL ---
ED Fall Injury RME/HPI General Chief Complaint: Fall Stated Complaint: PAIN LUQ ABD FROM FALL YESTERDAY Time Seen by Provider: 03/07/25 15:40 Arrival date/time: 03/07/25 15:24 RME / HPI RME / HPI Narrative: 03/07/25 15:24 The patient is an 84-year-old female with a history of type 2 diabetes, presents to the emergency room with a chief complaint of left rib pain after a ground-level fall that occurred yesterday afternoon. The patient was walking her dog, and wrapped her leg with dog lease and had mechanical ground-level fall. She reported no loss of consciousness, any bowel or bladder incontinence, but admitted hitting her head. She denied any headache, lightheadedness, sore throat, SOB, abdominal pain, any changes in bowel or bladder habit, nausea or vomiting, fever or chills, or any leg swelling. Related Data Home Medications ?Medication ?Instructions ?Recorded ?Confirmed alprazolam 0.5 mg tablet 0.5 mg PO QDAY PRN Anxiety 10/13/19 11/29/24 insulin glargine 100 unit/mL (3 16 unit subcut DAILY 08/08/22 11/29/24 mL) subcutaneous pen (Basaglar KwikPen U-100 Insulin) diphenhydramine HCl 25 mg capsule mg 11/29/24 (Banophen) pregabalin 75 mg capsule mg 11/29/24 ropinirole 0.5 mg tablet mg 11/29/24 Previous Rx's ?Medication ?Instructions ?Recorded Lactobacillus acidophilus 20 100 mmu cells (0.005 x 20 billion 11/30/24 billion cell capsule cell) PO QDAY #30 caps psyllium husk 0.4 gram capsule 0.4 g PO QDAY PRN constipation #30 11/30/24 (Fiber (psyllium husk)) caps calcium carbonate (Calcium 600) 600 mg PO BID #60 tabs 03/07/25 celecoxib 200 mg capsule 200 mg PO BID PRN pain #14 caps 03/07/25 cholecalciferol (vitamin D3) 1,250 1,250 mcg PO QWEEK #7 tabs 03/07/25 mcg (50,000 unit) tablet Allergies Allergy/AdvReac Type Severity Reaction Status Date / Time No Known Allergies Allergy Verified 05/12/25 15:28 Review of Systems Review of Systems Systems Reviewed: All systems reviewed, normal except as documented Past Medical History Past Medical History NEUROLOGIC: Positive Migraine; Negative Neurological Disorders or Seizures CARDIAC: Positive Cardiac Disorders, Edema, Hypertension and Varicose Veins; Negative Congestive Heart Failure RESPIRATORY: Positive Bronchitis and Pneumonia; Negative Chronic Obstructive Pulmonary Disease (COPD), Asthma or Tuberculosis GASTROINTESTINAL: Positive Gastrointestinal Disorders, Gall Bladder Disease, Ulcer and Gastroesophageal Reflux Disease; Negative Hepatitis GENITOURINARY: Negative Genitourinary Disorders, Renal Disease or Kidney Stones REPRODUCTIVE: Positive Previous Pregnancies MUSCULOSKELETAL: Positive Musculoskeletal Disorders, Arthritis and Fractures ENT: Positive Cataracts ENDOCRINE: Positive Endocrine Disorders and Diabetes Mellitus Type 2; Negative Diabetes Mellitus Type 1 HEMATOLOGIC: Negative Blood Disorders or Sickle Cell Disease PSYCHO/SOCIAL: Positive Depression and Anxiety OTHER HISTORY: Positive Falls, Chicken Pox, Measles, Mumps and Cancer; Negative Hospitalization, Blood Transfusions, Blood Transfusion Reaction, Anesthesia Reactions, Chemotherapy or Radiation Therapy Family History FAMILY HISTORY: Negative Family Cardiac Disorders Surgical History SURGICAL: Positive Tonsillectomy, Joint Replacement, Hysterectomy and Tubal Ligation; Negative Cardiac Surgery Social History SMOKING STATUS: Never smoker SECOND HAND EXPOSURE: No SUBSTANCE USE: does not use ED Exam Narrative Physical exam: General: Elderly, frail woman, no acute distress, Alert and Oriented x 3 HEENT: Moist mucous membranes, oropharynx clear Neck: Supple, No masses, No JVD CVS: S1S2 Regular rate and rhythm, No murmurs, rubs or gallops Lungs: Clear to auscultation with no accessory use, no wheeze no rhonchi, tenderness over left upper and lower lateral chest Abd: Soft, NT/ND, +BS, no organomegaly Ext: No edema, warm and well perfused Skin: No rash Psych: Appropriate mood and affect Course Quality Measures none Orders Category Date Time Status CT head/brain wo con Stat Exams 03/07/25 18:25 Completed XR ribs LT min 3V w CXR1V Stat Exams 03/07/25 15:48 Completed CBC Stat Lab 03/07/25 18:58 Completed CK [Creatine Kinase] Stat Lab 03/07/25 18:58 Completed CMP [Comprehensive Metabolic Panel] Stat Lab 03/07/25 18:58 Completed HYDROcodone*/APAP 5/325 [[place] 5/325] Med 03/07/25 17:40 Discontinued 1 tab PO X1 ONE INSULIN LISPRO (AdmeLOG) [HumaLOG] Med 03/07/25 21:19 Once 3 unit SC X1 ONE INSULIN LISPRO (AdmeLOG) [HumaLOG] Med 03/07/25 20:16 Discontinued 5 unit SC X1 ONE Insulin Glargine Inj [Lantus Inj] Med 03/07/25 20:16 Discontinued 15 unit SC X1 ONE Insulin Regular Med 03/07/25 20:12 Discontinued 10 unit IV X1 ONE Ketorolac Inj [Toradol Inj] Med 03/07/25 18:25 Discontinued 30 mg IM X1 ONE Sod Polystyrene Sulfon Susp [Kayexalate Susp] Med 03/07/25 20:12 Discontinued 15 gm PO X1 ONE Vital Signs Vital signs: Vital Signs Temperature 97.0 F 03/07/25 15:38 Pulse Rate 100 03/07/25 15:38 Respiratory Rate 17 03/07/25 15:38 Blood Pressure 133/70 H 03/07/25 15:38 Pulse Oximetry (%) 95 03/07/25 15:38 Oxygen Delivery Method Room Air 03/07/25 15:38 Fall MDM Narrative MDM Narrative:: The patient is an 84-year-old female with a history of type 2 diabetes, presents to the emergency room with a chief complaint of left rib pain after a ground-level fall that occurred yesterday afternoon. The patient was walking her dog, and wrapped her leg with dog lease and had mechanical ground-level fall. She reported no loss of consciousness, any bowel or bladder incontinence, but admitted hitting her head. She denied any headache, lightheadedness, sore throat, SOB, abdominal pain, any changes in bowel or bladder habit, nausea or vomiting, fever or chills, or any leg swelling. In the ED her vitals were significant for BP 133/70, pulse 100, temperature 97.0, saturating 95% on room air. Labs were significant for hemoglobin 11.3, chemistry panel revealed potassium 5.2, blood sugar 494, corrected calcium 8.3, head CT negative for acute hemorrhage, midline shift or mass effect. Ribs x-ray revealed acute left anterior third rib fracture, but no pneumothorax. The patient was initially given [place] 5 Mg p.o. x 1, and later Toradol 30 Mg IM x 1, with improvement in her chest pain. Repeat fingerstick blood sugar revealed blood sugar of 347. The patient was given 3 units of lispro SC x 1, insulin Lantus 15 units x 1 subcutaneously, Kayexalate 15 g p.o. x 1, and calcium carbonate 600 Mg p.o. x 1. The patient was planned to discharge. Patient data External records reviewed:: [facility] previous records Clinical information provided by:: patient Social determinants that could affect healthcare access:: none Patient has the following chronic illnesses:: See above How is presenting disease/condition affected by chronic disease/condition?: uneffected by Evaluation data The following diagnostics were reviewed and interpreted by me:: lab results and radiology exam(s) Lab and/or radiology exams considered but not ordered:: None Interpretation Summary: See above Medications / Prescriptions Medications or Prescriptions considered but not ordered:: None Medication administrations:: Medication Administration History Insulin Human Lispro (Insulin Lispro (Admelog) 1 Unit/0.01 Ml Unit) 3 unit SC X1 ONE Stop: 03/07/25 21:20 Discontinued Medications Hydrocodone Bitart/Acetaminophen (Hydrocodone/Apap 5/325 Tablet) 1 tab PO X1 ONE Stop: 03/07/25 17:41 Last Admin: 03/07/25 17:46 Dose: 1 tab Documented By: ALO Insulin Glargine (Insulin Glargine (Lantus) 5 Unit/0.05 Ml (Per 5 Units)) 15 unit SC X1 ONE Stop: 03/07/25 20:17 Last Admin: 03/07/25 21:18 Dose: 15 unit Documented By: CG Co-signed By: Insulin Human Lispro (Insulin Lispro (Admelog) 1 Unit/0.01 Ml Unit) 5 unit SC X1 ONE Stop: 03/07/25 20:17 Insulin Human Regular (Insulin Hum Regular 1 Unit/0.01 Ml (Per Unit)) 10 unit IV X1 ONE Stop: 03/07/25 20:13 Ketorolac Tromethamine (Ketorolac Inj 60 Mg/2 Ml Vial) 30 mg IM X1 ONE Stop: 03/07/25 18:26 Last Admin: 03/07/25 18:31 Dose: 30 mg Documented By: HERNANDO Sodium Polystyrene Sulfonate (Sod Polystyrene Sulfon Susp 15 Gm/60 Ml Btl) 15 gm PO X1 ONE Stop: 03/07/25 20:13 Last Admin: 03/07/25 21:19 Dose: 15 gm Documented By: CG See above Consultations Consultation(s) initiated? (list below): No Consultation #1 (Physician, Specialty, Details): None Diagnosis Fall Differential Diagnosis: syncope and other (Mechanical ground level fall) Most likely diagnosis given after review of the tests above:: Acute Lt 3rd rib fracture anteriorly 2/2 Mechanical Ground level fall Admission Indicated Admission indicated?: not indicated Admission Request Was there a request for admission?: No Disposition Plan Disposition Plan: Discharge Discharge Attestation Discharge Attestation: The patient and all family members were given an opportunity to ask questions and understood the discharge instructions. Discharge instructions specifically effects, indications for sooner follow up or return to the emergency department, and the expected course of current diagnosis. Patient condition: Stable Discharge Plan Plan Patient Disposition: HOME (Self Care) Patient condition on transfer: Stable Prescriptions/Referrals Prescriptions/Med Rec: New celecoxib 200 mg capsule 200 mg PO BID PRN (Reason: pain) Qty: 14 0RF cholecalciferol (vitamin D3) 1,250 mcg (50,000 unit) tablet 1,250 mcg PO QWEEK Qty: 7 0RF calcium carbonate [Calcium 600] 600 mg calcium (1,500 mg) tablet 600 mg PO BID Qty: 60 0RF No Action alprazolam 0.5 mg tablet 0.5 mg PO QDAY PRN (Reason: Anxiety) Patient Comments: TAKE ONE TABLET BY MOUTH EVERY DAY NEEDED FOR ANXIETY pregabalin 75 mg capsule Patient Comments: TAKE 1 CAPSULE BY MOUTH TWICE A DAY ropinirole 0.5 mg tablet Patient Comments: 1 tablet by mouth every day. diphenhydramine HCl [Banophen] 25 mg capsule Patient Comments: TAKE ONE CAPSULE BY MOUTH EVERY 4 TO 6 HOURS NEEDED. Lactobacillus acidophilus 20 billion cell capsule 100 mmu cells PO QDAY Qty: 30 0RF psyllium husk [Fiber (psyllium husk)] 0.4 gram capsule 0.4 g PO QDAY PRN (Reason: constipation) Qty: 30 0RF insulin glargine [Basaglar KwikPen U-100 Insulin] 100 unit/mL (3 mL) insulin pen 16 unit subcut DAILY Patient Comments: INJECT 16 UNITS SUBCUTANEOUSLY TWICE DAILY FOR DIABETES Rx Instructions: PER SLIDING SCALE PER PT. Referrals: No Primary/Family,Physician [Primary Care Provider] - In 1 week Problem List Clinical Impression: Fracture of left third rib, Fall Patient/Caregiver Discharge Instructions Discharge Activity: activity as tolerated Education Materials: How Bones Heal, Preventing Falls Moving Safely ..., ED Rib Fracture Additional Instructions: You have been diagnosed with acute left third Rib fracture anteriorly because of ground-level mechanical fall. You have been discharged on following recommendations by Dr. Rios: Please follow-up with your PCP within 1 week of discharge, and get referral for physical therapy You have been started on: -Celecoxib 200 Mg twice daily as needed for pain -Started on calcium carbonate 600 Mg twice daily for 1 month - Started on vitamin D 50,000 Iunits every weekly for 7 weeks Continue taking all other medicines as prescribed -Please sleep on your back for about a month for proper healing of left third rib fracture -Recommended to return back to emergency department if your symptoms persists or worsens Print Language: Estonian Stand Alone Forms: [employer] Award Info., Patient Portal Info Letter
[2025-03-07 20:04] LABS: Alanine Aminotransferase 18 U/L (10-49); Albumin, Serum 4.2 gm/dL (3.4-4.8); Albumin/Globulin Ratio 1.8 (1.2-2.2); Alkaline Phosphatase 172 U/L (46-116); Anion Gap 10 (7-16); Aspartate Amino Transferase 16 U/L (0-34); BUN/Creatinine Ratio 23 Ratio (12-20); Bilirubin,Total 0.3 mg/dL (0.3-1.2); Blood Urea Nitrogen 25 mg/dL (9-23); Calcium 8.3 mg/dL (8.3-10.6); Calcium (Corrected) 8.3 mg/dL (8.5-10.1); Carbon Dioxide 23.1 mMol/L (20.0-31.0); Chloride 106 mMol/L (98-107); Creatine Kinase 139 U/L (34-171); Creatinine (Component) 1.1 mg/dL (0.6-1.3); Globulin 2.4 gm/dL (2.3-3.5); Osmolality,Calculated 303 (275-295); Potassium 5.2 mMol/L (3.4-5.1); Sodium 139 mMol/L (136-145); Total Protein 6.6 gm/dL (5.7-8.2); eGFR 50 See Note
[2025-03-07 20:07] LABS: Glucose 494 mg/dL (74-106)
--- NOTE | 2025-03-07 20:55 | PC.NURSE ---
Advertising Traffic Manager assumes care of patient at this time, Pt denies any pain or acute distress, pt is A/O x 3, pt reports ground level fall yesterday while walking her dog, pt noted to have glucose level of 494 and will receive treatment here in the ER
[2025-03-07 21:00] VITALS: BP 160/81; PULSE 75; RESP 20; TEMP 36.2; O2SAT 99
[2025-03-07] MEDS: INSULIN GLARGINE (Lantus) 5 UNIT/0.05 ML (PER 5 UNITS) 15 UNIT SC (21:18)
[2025-03-07] MEDS: SOD POLYSTYRENE SULFON SUSP 15 GM/60 ML BTL PO (21:19)
[2025-03-07] MEDS: INSULIN LISPRO (AdmeLOG) 1 UNIT/0.01 ML UNIT 3 UNIT SC (21:23)
[2025-03-07 22:00] VITALS: BP 155/94; PULSE 77; RESP 20; TEMP 36.2; O2SAT 98
--- NOTE | 2025-03-07 23:13 | PC.NURSE ---
PT CAREGIVER STATED SHE NEEDED TO LEAVE AND IF PT WAS NOT DC SOON PT WOULD HAVE TO STAY HERE UNTIL TOMORROW. I EXPLAINED THAT WE ARE WAITING FOR A MEDICATION FROM EMAIL MARKETING SPECIALIST, PT STATED THAT SINCE THEY WERE GIVEN A PRESCRIPTO=ION THEY COULD PICK IT UP IN THE MORNING.
== END 2025-03-07 23:19 | disposition home or self-care (01) ==
PROVIDERS: Emergency Provider Student in an Organized Health Care Education/Training Program
DX: S22.32XA Fracture of one rib, left side, initial encounter for closed fracture (principal); S09.90XA Unspecified injury of head, initial encounter; W18.39XA Other fall on same level, initial encounter; Y93.K1 Activity, walking an animal
CPT/HCPCS: 36415; 70450; 71101; 80053; 82550; 85025; 96372; 99284; J1815; J1885; A9270

== ENCOUNTER 2025-03-12 22:53 | Inpatient (IN) | payer MEDICARE, MEDICAID, SELFPAY ==
[2025-03-12 23:10] VITALS: PULSE 94; RESP 16; O2SAT 100; BMI 25.0
[2025-03-13] VITALS (10 sets, daily range): BP systolic 121–157; BP diastolic 67–88; PULSE 82–97; RESP 16–20; TEMP 36.2–37.4; O2SAT 90–96
--- NOTE | 2025-03-13 00:31 | EKG_ITS ---
[facility] Test Date: 2025-03-13 Pat Name: INDIRA WILCOX Department: Room: - Gender: Female [employer]: : 1940 Requested By: David Bain Order Number: [id number] Reading MD: David Bain Measurements Intervals [place] Rate: 110 P: 46 PA: 146 QRS: 28 QRSD: 97 T: 109 QT: 320 QTc: 433 Interpretive Statements SINUS TACHYCARDIA LEFT VENTRICULAR HYPERTROPHY AND ST-T CHANGE [VOLTAGE CRITERIA PLUS ST/T ABNORMALITY] Compared to ECG 05/05/2024 23:41:21 Left ventricular hypertrophy now present ST (T wave) deviation now present Sinus rhythm no longer present T-wave abnormality no longer present /store/S0/[id number].pdf
--- NOTE | 2025-03-13 00:32 | PD.EDRME ---
Rapid Medical Screening Exam RME Arrival date/time: 03/12/25 22:53 Chief Complaint: Abdominal Pain Time Seen by Provider: 03/12/25 23:03 Vital signs: Vital Signs Temperature 99.3 F 03/13/25 00:16 Pulse Rate 93 03/13/25 00:16 Respiratory Rate 18 03/13/25 00:16 Blood Pressure 121/78 03/13/25 00:16 Pulse Oximetry (%) 94 L 03/13/25 00:16 Oxygen Delivery Method Room Air 03/13/25 00:16 E Narrative: Nausea/vomiting and abdominal pain that initiated today, history of bowel obstruction
[2025-03-13] MEDS: ONDANSETRON INJ 2 MG/ML INJ 2 ML 4 MG IM (00:43)
[2025-03-13 01:36] LABS: Basophils # (Auto) 0.1 Thou/mm3 (0.0-0.2); Basophils % (Auto) 1 % (0-2.5); Eosinophils # (Auto) 0.1 Thou/mm3 (0.0-0.5); Eosinophils % (Auto) 1 % (0-10); Hematocrit 38.3 % (36.0-46.0); Hemoglobin 12.7 g/dL (12.0-16.0); Immature Granulocytes % (Auto) 0 % (0-0); Immature Granulocytes Auto 0.03 Thou/mm3 (0.00-0.00); Lymphocytes # (Auto) 1.2 Thou/mm3 (1.0-4.8); Lymphocytes % (Auto) 12 % (10-50); Mean Corpuscular HGB Conc 33.2 g/dl (31.0-37.0); Mean Corpuscular Hemoglobin 27.1 pg (25.0-35.0); Mean Corpuscular Volume 82 fL (80-100); Monocytes # (Auto) 0.8 Thou/mm3 (0.0-0.8); Monocytes % (Auto) 9 % (0-12); Neutrophils # (Auto) 7.5 Thou/mm3 (1.8-7.7); Neutrophils % (Auto) 78 % (37-80); Nucleated Red Blood Cell % 0 /100 WBC (0); Platelet Count 186 Thou/mm3 (140-440); RDW Standard Deviation 48.9 fL (36.4-46.3); Red Blood Count 4.69 Miln/mm3 (4.00-5.20); White Blood Count 9.6 Thou/mm3 (3.6-11.0)
--- NOTE | 2025-03-13 02:07 | PD.EDABDPN ---
ED Abdominal Pain RME/HPI General Chief Complaint: Abdominal Pain Stated complaint: ABD PAIN Time seen by provider: 03/12/25 23:03 Arrival date/time: 03/12/25 22:53 RME / HPI RME / HPI narrative: Nausea/vomiting and abdominal pain that initiated today, history of bowel obstruction ------ Dr. Nieto?s Main ED Evaluation: 84yo female with a history of DM, HTN, GERD, previous bowel obstructions presents to the ED for a chief complaint of diffuse abdominal pain. Patient states she started having significant diffuse abdominal pain at 2100, reporting she's had persistent nausea and vomiting since. Patient was unable to tolerate her symptoms, reporting they felt similar to when she had a bowel obstruction, so she came in for evaluation. Consuelo also complains of left rib pain that she's had for 1 week since she fell (patient was evaluated here for this). Patient denies any fever, chills, cough or any other associated symptoms. PSH includes appendectomy, cholecystectomy, and hysterectomy. NKA. Related Data Home Medications ?Medication ?Instructions ?Recorded ?Confirmed alprazolam 0.5 mg tablet 0.5 mg PO QDAY PRN Anxiety 10/13/19 11/29/24 insulin glargine 100 unit/mL (3 16 unit subcut DAILY 08/08/22 11/29/24 mL) subcutaneous pen (Basaglar KwikPen U-100 Insulin) diphenhydramine HCl 25 mg capsule mg 11/29/24 (Banophen) pregabalin 75 mg capsule mg 11/29/24 ropinirole 0.5 mg tablet mg 11/29/24 Previous Rx's ?Medication ?Instructions ?Recorded Lactobacillus acidophilus 20 100 mmu cells (0.005 x 20 billion 11/30/24 billion cell capsule cell) PO QDAY #30 caps psyllium husk 0.4 gram capsule 0.4 g PO QDAY PRN constipation #30 11/30/24 (Fiber (psyllium husk)) caps calcium carbonate (Calcium 600) 600 mg PO BID #60 tabs 03/07/25 celecoxib 200 mg capsule 200 mg PO BID PRN pain #14 caps 03/07/25 cholecalciferol (vitamin D3) 1,250 1,250 mcg PO QWEEK #7 tabs 03/07/25 mcg (50,000 unit) tablet Allergies Allergy/AdvReac Type Severity Reaction Status Date / Time No Known Allergies Allergy Verified 03/07/25 15:28 Review of Systems Review of Systems Systems Reviewed: All systems reviewed, normal except as documented Past Medical History Past Medical History NEUROLOGIC: Positive Migraine; Negative Neurological Disorders or Seizures CARDIAC: Positive Edema, Hypertension and Varicose Veins; Negative Cardiac Disorders or Congestive Heart Failure RESPIRATORY: Positive Bronchitis and Pneumonia; Negative Chronic Obstructive Pulmonary Disease (COPD), Asthma or Tuberculosis GASTROINTESTINAL: Positive Gastrointestinal Disorders, Gall Bladder Disease, Ulcer and Gastroesophageal Reflux Disease; Negative Hepatitis GENITOURINARY: Negative Genitourinary Disorders, Renal Disease or Kidney Stones REPRODUCTIVE: Positive Previous Pregnancies MUSCULOSKELETAL: Positive Musculoskeletal Disorders, Arthritis and Fractures ENT: Positive Cataracts ENDOCRINE: Positive Endocrine Disorders and Diabetes Mellitus Type 2; Negative Diabetes Mellitus Type 1 HEMATOLOGIC: Negative Blood Disorders or Sickle Cell Disease PSYCHO/SOCIAL: Positive Depression and Anxiety OTHER HISTORY: Positive Falls, Chicken Pox, Measles, Mumps and Cancer; Negative Hospitalization, Blood Transfusions, Blood Transfusion Reaction, Anesthesia Reactions, Chemotherapy or Radiation Therapy Family History FAMILY HISTORY: Negative Family Cardiac Disorders Surgical History SURGICAL: Positive Tonsillectomy, Joint Replacement, Hysterectomy and Tubal Ligation; Negative Cardiac Surgery Social History SMOKING STATUS: Never smoker SECOND HAND EXPOSURE: No SUBSTANCE USE: does not use ED Exam Narrative Physical exam: GENERAL APPEARANCE: alert and oriented x 4, well-developed, well-nourished, no acute distress VITALS: All vitals were reviewed and the pulse ox is 95% on room air, which is normal according to my interpretation. HEENT: Normocephalic, atraumatic; pupils equal, round, reactive to light; EOMI; mucous membranes pink, moist; oropharynx clear NECK: Supple LUNGS: CTABL; no wheezes, no rales, no rhonchi HEART: Regular rate, regular rhythm; normal S1, S2; no murmurs ABDOMEN: moderately distended; soft, [id number] tenderness in all quadrants, voluntary guarding, no rebound, no rigidity BACK: no CVA tenderness EXTREMITIES: atraumatic; no edema NEUROLOGIC: awake; alert and oriented x4; cranial nerves II-XII grossly intact; no focal sensory or motor deficits PSYCHIATRIC: appropriate mood and affect SKIN: warm, dry, normal color; no rashes Course Quality Measures none Orders Category Date Time Status CT Screening NOW Care 03/13/25 00:[address] Screening NOW Care 03/13/25 02:09 Completed Senior Structural Engineer STAT Care 03/13/25 02:10 Active Continuous Pulse Oximetry STAT Care 03/13/25 02:11 Completed EKG (ED ONLY) *Do not use* NOW Care 03/13/25 00:31 Completed IV [Insert IV] STAT Care 03/13/25 01:54 Active Insert IV STAT Care 03/13/25 02:10 Completed NPO STAT Care 03/13/25 02:10 Active Urinary Catheter STAT Care 03/13/25 02:10 Active Consult to General Surgery Stat Cons 03/13/25 04:[address] chest abdomen pelvis w Stat Exams 03/13/25 02:09 Taken EKG (ED Only) Stat Exams 03/13/25 00:31 Draft CBC Stat Lab 03/13/25 01:12 Completed CMP [Comprehensive Metabolic Panel] Stat Lab 03/13/25 01:54 Completed Lipase Stat Lab 03/13/25 01:54 Completed Magnesium Stat Lab 03/13/25 01:54 Completed Partial Thromboplastin Time Stat Lab 03/13/25 02:26 Completed Prothrombin Time with INR Stat Lab 03/13/25 02:26 Completed Troponin I Stat Lab 03/13/25 01:54 Completed UA [Urinalysis] Stat Lab 03/13/25 01:42 Completed 3.375 gm x1 Med 03/13/25 04:36 Ordered Piper/Tazo 3.375 gm Premix [Zosyn] 3.375 gm in 50 ml IV X1 Fluconazole/Ns 200 mg Ivpb [Diflucan/Ns Ivpb] Med 03/13/25 04:36 Ordered 200 mg in 100 ml IV X1 HYDROmorphone INJ [Dilaudid Inj] Med 03/13/25 02:15 Active 0.5 mg IVP PRN Ondansetron Inj [Zofran Inj] Med 03/13/25 00:31 Discontinued 4 mg IM X1 ONE Sodium Chloride 0.9% 1000 ml [Ns] 1,000 ml Med 03/13/25 02:10 Discontinued IV 999 mls/hr Vital Signs Vital signs: Vital Signs Temperature 99.3 F 03/13/25 00:16 Pulse Rate 93 03/13/25 00:16 Respiratory Rate 18 03/13/25 00:16 Blood Pressure 121/78 03/13/25 00:16 Pulse Oximetry (%) 94 L 03/13/25 00:16 Oxygen Delivery Method Room Air 03/13/25 00:16 Abdominal Pain MDM MDM Narrative MDM Narrative:: Scribe Attestation: 03/13/25 - Jordyn Mohr am scribing for and in the presence of Dr. Nieto. 0425: [facility]eler[facility] called me, stating the patient has a small bowel obstruction. 0430: Discussed case with Dr. Villanueva from general surgery regarding consultation. Discussed patients ED course, exam findings, labs, and radiology results. Agrees to consult. 0431: Discussed case with the resident physician, attending Dr. Huber from Hospitalist service regarding admission. Discussed patients ED course, exam findings, labs, and radiology results. The Hospitalist agrees to accept the patient for admission. Patient data External records reviewed:: [facility] previous records (Per chart review, patient was seen here on 03/07/25 for a fall.) Clinical information provided by:: patient Social determinants that could affect healthcare access:: none Patient has the following chronic illnesses:: DM, HTN, GERD How is presenting disease/condition affected by chronic disease/condition?: uneffected by Evaluation data The following diagnostics were reviewed and interpreted by me:: lab results, radiology exam(s) and EKG tracing(s) Lab and/or radiology exams considered but not ordered:: none Interpretation Summary: CBC is normal, PT and INR are normal, PTT is normal, Creatinine is 1.7, Glucose is elevated at 404, Anion Gap is normal, Troponin is normal, Lipase is normal, UA is positive for a UTI and yeast, according to my interpretation. EKG done at 0037, sinus tachycardia, rate of 110, normal axis, no ectopy, LVH, ST abnormalities in lead I and avL, no STEMI, according to my interpretation. [facility] Preliminary Report Draft Patient: INDIRA WILCOX [facility]. Record#: [id number] Birthdate: 1940 Age/Sex: 84 / F Location: [facility] Attending Dr: Ordering Physician: Date of Service: Procedure(s): Accession Number(s): cc: ~ CT scan of the chest, abdomen and pelvis with intravenous contrast (axial sections with sagittal and coronal reformats). March 13, 2025 at 0240 hours Clinical History: Generalized abdominal pain. Comparison: Reference is made to prior preliminary CT chest report dated June 13, 2022. Reference is made to prior preliminary CT abdomen and pelvis report dated December 06, 2022. Findings: There are emphysematous changes in the lungs with atelectasis/scarring at the lung bases. There is no pleural effusion or pneumothorax. The thoracic aorta demonstrates atheromatous calcification without evidence of dissection or aneurysm. There are prominent calcified and non-calcified mediastinal lymph nodes. There is no filling defect within the pulmonary artery divisions to suggest pulmonary thromboembolism. There is no pericardial effusion. Both lobes of thyroid are enlarged with heterogeneous nodules. There is small hiatal hernia with wall thickening of the lower thoracic esophagus, which may be due to reflux esophagitis or due to other inflammatory pathology. The spleen, pancreas, adrenals and right kidney are unremarkable. There is hepatomegaly with fatty infiltration. The gallbladder is surgically absent. There is pneumobilia within the dilated intra and extrahepatic biliary ducts without calcified obstructing common bile duct calculus. Left renal parapelvic cyst is seen. There are fluid filled and dilated loops of jejunum and proximal ileum with caliber change in the pelvis at the level of proximal ileum. The remainder of the ileum is normal in caliber. The appendix is not visualized. The colon is normal in caliber. The urinary bladder is unremarkable. The uterus is likely surgically absent. There is no free fluid or air. The abdominal aorta demonstrates atheromatous calcification without evidence of aneurysm. The bones are osteopenic. Vertebroplasty changes are seen at L2. There are bilateral laminectomies at L4 and L5. There are pedicle fixation screws and posterior fusion rods from L4 through S1. There is left hip arthroplasty. Osseous degenerative changes are noted. There is a chronic fracture of the right proximal femur with internal fixation device in place. Please note that evaluation of bowel loops is limited due to absence of oral contrast. Impression: 1. Findings suggestive of small bowel obstruction with caliber change in the pelvis at the level of proximal ileum, likely due to adhesions. 2. Small hiatal hernia with wall thickening of the lower thoracic esophagus, which may be due to reflux esophagitis or due to other inflammatory pathology. 3. No evidence of acute intrathoracic pathology. 4. Other findings as described above. Suggest clinical correlation and follow up accordingly. Discussion Details: Results verbally communicated to : Dr. Nieto at 04:20 AM 03/13/2025 Report Electronically Signed By: Horace Baldwin 03/13/2025 4:26:45 AM Medications / Prescriptions Medications or Prescriptions considered but not ordered:: none Medication administrations:: Medication Administration History Hydromorphone HCl (Hydromorphone Inj 2 Mg/Ml Vial) 0.5 mg IVP PRN HARINI Stop: 03/18/25 02:14 Last Admin: 03/13/25 03:35 Dose: 0.5 mg Documented By: Admin: 03/13/25 02:24 Dose: 0.5 mg Documented By: CVL Fluconazole (Diflucan/Ns Ivpb) 200 mg in 100 mls @ 100 mls/hr IV X1 ONE Stop: 03/13/25 05:35 Discontinued Medications Sodium Chloride (Ns) 1,000 mls @ 999 mls/hr IV .Q1H1M ONE Stop: 03/13/25 03:10 Last Infusion: 03/13/25 04:04 Dose: Infused Documented By: Admin: 03/13/25 03:03 Dose: 999 mls/hr Documented By: EVELIN Ondansetron HCl (Ondansetron Inj 2 Mg/Ml Inj 2 Ml) 4 mg IM X1 ONE; Protocol Stop: 03/13/25 00:32 Last Admin: 03/13/25 00:43 Dose: 4 mg Documented By: see above Consultations Consultation(s) initiated? (list below): Yes Diagnosis Differential diagnosis abdominal pain: small bowel obstruction and other (bowel perforation, toxic megacolon) Most likely diagnosis given after review of the tests above:: small bowel obstruction Admission Indicated Admission indicated?: indicated Admission Request Was there a request for admission?: Yes Admission Attestation Admission request attestation: Discussed case with [] from Hospitalist service regarding admission. Discussed patients ED course, exam findings, labs, and radiology results. The Hospitalist [agrees,declines] to accept the patient for admission. Disposition Plan Disposition Plan: Admit Critical Care Time Critical Care Time Critical Care Time: Yes Total Critical Care Time (min.): 40 Attestation: The high probability of sudden, clinically significant deterioration in the patient?s condition required the highest level of my preparedness to intervene urgently. The services I provided to this patient were to treat and/or prevent clinically significant deterioration. Services included the following: chart data review, reviewing nursing notes and/or old charts, documentation time, sr risk management consultant collaboration regarding findings and treatment options, medication orders and management, direct patient care, vital sign assessments and ordering, interpreting and reviewing diagnostic studies and lab tests. Aggregate critical care time includes only time during which I was engaged in work directly related to the patient?s care, as described above, whether at bedside or elsewhere in the Emergency Department. It did not include time spent performing other reported procedures or the services of residents, students, nurses or physician assistants. Discharge Plan Plan Patient Disposition: Admit Acute Care w/in Hospital Prescriptions/Referrals Prescriptions/Med Rec: No Action alprazolam 0.5 mg tablet 0.5 mg PO QDAY PRN (Reason: Anxiety) Patient Comments: TAKE ONE TABLET BY MOUTH EVERY DAY NEEDED FOR ANXIETY pregabalin 75 mg capsule Patient Comments: TAKE 1 CAPSULE BY MOUTH TWICE A DAY ropinirole 0.5 mg tablet Patient Comments: 1 tablet by mouth every day. diphenhydramine HCl [Banophen] 25 mg capsule Patient Comments: TAKE ONE CAPSULE BY MOUTH EVERY 4 TO 6 HOURS NEEDED. Lactobacillus acidophilus 20 billion cell capsule 100 mmu cells PO QDAY Qty: 30 0RF psyllium husk [Fiber (psyllium husk)] 0.4 gram capsule 0.4 g PO QDAY PRN (Reason: constipation) Qty: 30 0RF celecoxib 200 mg capsule 200 mg PO BID PRN (Reason: pain) Qty: 14 0RF cholecalciferol (vitamin D3) 1,250 mcg (50,000 unit) tablet 1,250 mcg PO QWEEK Qty: 7 0RF calcium carbonate [Calcium 600] 600 mg calcium (1,500 mg) tablet 600 mg PO BID Qty: 60 0RF insulin glargine [Basaglar KwikPen U-100 Insulin] 100 unit/mL (3 mL) insulin pen 16 unit subcut DAILY Patient Comments: INJECT 16 UNITS SUBCUTANEOUSLY TWICE DAILY FOR DIABETES Rx Instructions: PER SLIDING SCALE PER PT. Referrals: Bharathi Dominguez MD [Primary Care Provider] - In 1 week Problem List Clinical Impression: Small bowel obstruction, UTI (urinary tract infection), RIKKI (acute kidney injury) Patient/Caregiver Discharge Instructions Print Language: Sami Stand Alone Forms: [employer]iti Award Info., Patient Portal Info Letter
[2025-03-13 02:08] LABS: Collection Type, Urine Clean Catch
--- NOTE | 2025-03-13 02:09 | XR_ITS ---
Examination: CT chest with intravenous contrast CT abdomen with intravenous contrast CT pelvis with intravenous contrast 2-D coronal and sagittal reconstructions Time of exam: March 13, 2025 0240 hours INDICATIONS: Chest and abdominal pain beginning 2 days ago CTDI: vol (mGy) : 7.2 DLP: (mGycm): 510 Technique: Multiple axial images of the chest, abdomen and pelvis with intravenous contrast, 3.0 mm slice thickness. Images obtained post intravenous injection Isovue 370 60 cc. 2-D sagittal and coronal reconstructions. Low dose protocols were performed. One or more of the following dose reduction techniques were used; automated exposure control, adjustment of the mA and/or KV according to patient size, use of iterative reconstruction technique. Findings: Enlarged thyroid lobes with bilateral thyroid nodules No thoracic aortic aneurysm dilatation No pulmonary artery filling defects Fluid distended esophagus No pneumonia or pulmonary edema Small retrocardiac gastric hernia Pneumobilia Absent gallbladder Numerous air and fluid distended small bowel loops Heavy abdominal aortic calcification No pericecal inflammatory change Absent uterus No pelvic mass Old healed right hip fracture and left hip bipolar hemiarthroplasty Kyphoplasty L2 Severe osteopenia Transpedicular fusion L4-S1 IMPRESSION: High-grade small bowel obstruction, consider Gastrografin small bowel series follow-up
[2025-03-13] MEDS: HYDROmorphone INJ 2 MG/ML VIAL 0.5 MG IVP ×3 (02:24→04:38)
[2025-03-13 03:01] LABS: Amorphous Crystals,Urine Present (Absent); Bacteria,Urine 1+; Bilirubin,Urine Negative (Negative); Blood,Urine Negative (Negative); Budding Yeast,Urine Present; Clarity,Urine Turbid (Clear/Hazy); Color,Urine Yellow (Lt Yel-Yel); Glucose, Urine 3+ (Negative); Hyaline Casts,Urine < 1 /hpf (0-1); Ketones,Urine Negative (Negative); Leukocyte Esterase,Urine Positive (Negative); Nitrite,Urine Negative (Negative); PH,Urine 5.5 (5.0-7.0); Protein,Urine Trace (Neg - Trace); RBC,Urine 58 /hpf (0-3); Specific Gravity,Urine 1.026 (1.001-1.035); Squamous Epithelial Cell,Urine 32 /hpf (0-5); Urobilinogen,Urine Negative mg/dL (0.0-1.0); WBC,Urine 33 /hpf (0-5)
[2025-03-13] MEDS: SODIUM CHLORIDE 0.9% 1000 ML 1,000 ML 999 ML IV (03:03)
[2025-03-13 03:35] LABS: Alanine Aminotransferase 17 U/L (10-49); Albumin, Serum 4.7 gm/dL (3.4-4.8); Albumin/Globulin Ratio 1.6 (1.2-2.2); Alkaline Phosphatase 170 U/L (46-116); Anion Gap 12 (7-16); Aspartate Amino Transferase 18 U/L (0-34); BUN/Creatinine Ratio 16 Ratio (12-20); Bilirubin,Total 0.6 mg/dL (0.3-1.2); Blood Urea Nitrogen 28 mg/dL (9-23); Calcium 8.9 mg/dL (8.3-10.6); Calcium (Corrected) 8.9 mg/dL (8.5-10.1); Carbon Dioxide 22.8 mMol/L (20.0-31.0); Chloride 102 mMol/L (98-107); Creatinine (Component) 1.7 mg/dL (0.6-1.3); Estimated Creatinine Clearance 24.8 mL/min (>60); Lipase 42 U/L (12-53); Osmolality,Calculated 296 (275-295); Sodium 137 mMol/L (136-145); Total Protein 7.7 gm/dL (5.7-8.2); Troponin I < 0.020 ng/mL (0.0-0.045); eGFR 30 See Note
[2025-03-13 03:37] LABS: Glucose 404 mg/dL (74-106)
[2025-03-13 03:56] LABS: Partial Thromboplastin Time 26.3 Seconds (22.0-36.0); Prothrombin Time 11.1 Seconds (9.0-12.2)
--- NOTE | 2025-03-13 04:27 | PRELIM_ITS ---
CT scan of the chest, abdomen and pelvis with intravenous contrast (axial sections with sagittal and coronal reformats). March 13, 2025 at 0240 hours Clinical History: Generalized abdominal pain. Comparison: Reference is made to prior preliminary CT chest report dated June 13, 2022. Reference is made to prior preliminary CT abdomen and pelvis report dated December 06, 2022. Findings: There are emphysematous changes in the lungs with atelectasis/scarring at the lung bases. There is no pleural effusion or pneumothorax. The thoracic aorta demonstrates atheromatous calcification without evidence of dissection or aneurysm. There are prominent calcified and non-calcified mediastinal lymph nodes. There is no filling defect within the pulmonary artery divisions to suggest pulmonary thromboembolism. There is no pericardial effusion. Both lobes of thyroid are enlarged with heterogeneous nodules. There is small hiatal hernia with wall thickening of the lower thoracic esophagus, which may be due to reflux esophagitis or due to other inflammatory pathology. The spleen, pancreas, adrenals and right kidney are unremarkable. There is hepatomegaly with fatty infiltration. The gallbladder is surgically absent. There is pneumobilia within the dilated intra and extrahepatic biliary ducts without calcified obstructing common bile duct calculus. Left renal parapelvic cyst is seen. There are fluid filled and dilated loops of jejunum and proximal ileum with caliber change in the pelvis at the level of proximal ileum. The remainder of the ileum is normal in caliber. The appendix is not visualized. The colon is normal in caliber. The urinary bladder is unremarkable. The uterus is likely surgically absent. There is no free fluid or air. The abdominal aorta demonstrates atheromatous calcification without evidence of aneurysm. The bones are osteopenic. Vertebroplasty changes are seen at L2. There are bilateral laminectomies at L4 and L5. There are pedicle fixation screws and posterior fusion rods from L4 through S1. There is left hip arthroplasty. Osseous degenerative changes are noted. There is a chronic fracture of the right proximal femur with internal fixation device in place. Please note that evaluation of bowel loops is limited due to absence of oral contrast. Impression: 1. Findings suggestive of small bowel obstruction with caliber change in the pelvis at the level of proximal ileum, likely due to adhesions. 2. Small hiatal hernia with wall thickening of the lower thoracic esophagus, which may be due to reflux esophagitis or due to other inflammatory pathology. 3. No evidence of acute intrathoracic pathology. 4. Other findings as described above. Suggest clinical correlation and follow up accordingly. Discussion Details: Results verbally communicated to : Dr. Nieto at 04:20 AM 03/13/2025 Report Electronically Signed By: Horace Baldwin 03/13/2025 4:26:45 AM [EST]
[2025-03-13] MEDS: PIPER/TAZO 3.375 GM PREMIX 3.375 GM/50 ML BAG IV (05:15)
--- NOTE | 2025-03-13 05:18 | PD.RESHP ---
Documentation for date of: 03/13/25 [facility] History of Present Illness History of present illness: Patient is a 84-year-old female with a past medical history of diabetes mellitus, hypertension, multiple abdominal surgeries, recurrent bowel obstructions, peripheral neuropathy, chronic opioid use who presented to the ER complaining of nausea, vomiting, abdominal pain and constipation. Patient reported she has been constipated for the past 2 days, had 3-4 episodes of vomiting contained food contents, complaining of abdominal pain which improved after morphine in the emergency room. Patient also reported she has chest pain for a week due to broken ribs after she fell last week. In the ER, initial labs pertinent for hyperkalemia, RIKKI, BUN 28, creatinine 1.7, hyperglycemia, glucose 404, ER spoke to general surgeon Dr. Villanueva who agreed to consult on the patient. Past medical history: Diabetes mellitus, hypertension, recurrent bowel obstruction, peripheral neuropathy, chronic opiate use Past surgical history: History of hysterectomy, history of cholecystectomy, history of appendectomy. Review of Systems Review of Systems Systems Reviewed: All systems reviewed, normal except as documented Past Medical History Past Medical History NEUROLOGIC: Positive Migraine; Negative Neurological Disorders or Seizures CARDIAC: Positive Edema, Hypertension and Varicose Veins; Negative Cardiac Disorders or Congestive Heart Failure RESPIRATORY: Positive Bronchitis and Pneumonia; Negative Chronic Obstructive Pulmonary Disease (COPD), Asthma or Tuberculosis GASTROINTESTINAL: Positive Gastrointestinal Disorders, Gall Bladder Disease, Ulcer and Gastroesophageal Reflux Disease; Negative Hepatitis GENITOURINARY: Negative Genitourinary Disorders, Renal Disease or Kidney Stones REPRODUCTIVE: Positive Previous Pregnancies MUSCULOSKELETAL: Positive Musculoskeletal Disorders, Arthritis and Fractures ENT: Positive Cataracts ENDOCRINE: Positive Endocrine Disorders and Diabetes Mellitus Type 2; Negative Diabetes Mellitus Type 1 HEMATOLOGIC: Negative Blood Disorders or Sickle Cell Disease PSYCHO/SOCIAL: Positive Depression and Anxiety OTHER HISTORY: Positive Falls, Chicken Pox, Measles, Mumps and Cancer; Negative Hospitalization, Blood Transfusions, Blood Transfusion Reaction, Anesthesia Reactions, Chemotherapy or Radiation Therapy Family History FAMILY HISTORY: Negative Family Cardiac Disorders Surgical History SURGICAL: Positive Tonsillectomy, Joint Replacement, Hysterectomy and Tubal Ligation; Negative Cardiac Surgery Social History SMOKING STATUS: Never smoker SECOND HAND EXPOSURE: No SUBSTANCE USE: does not use Exam Vital Signs Temp Pulse Resp BP Pulse Ox O2 Del Method O2 Flow Rate 99.0 F 97 20 157/88 H 95 Nasal Cannula 2 03/13/25 03:00 03/13/25 03:00 03/13/25 03:00 03/13/25 03:00 03/13/25 03:00 03/13/25 03:00 03/13/25 03:00 Narrative Exam General: AOx3, cooperative Skin: Intact, no cyanosis or edema noted. HEENT: Atraumatic/normocephalic, ENRRIQUE, neck supple Heart: RRR, S1 and S2 without clicks or murmurs Lungs: Clear on auscultation bilaterally, no difficulty breathing Abdomen: Distended abdomen, mild tenderness lower quadrants, bowel sounds, absent Vascular: Peripheral pulses palpable Neuro: No focal neurological deficits noted. Results: Labs 03/13/25 01:12 03/13/25 01:54 Labs: Short CBC 03/13/25 Range/Units 01:12 WBC 9.6 (3.6-11.0) Thou/mm3 Hgb 12.7 (12.0-16.0) g/dL Hct 38.3 (36.0-46.0) % Plt Count 186 D (140-440) Thou/mm3 BMP 03/13/25 01:54 Sodium 137 Potassium 5.0 Chloride 102 Carbon Dioxide 22.8 BUN 28 H Creatinine 1.7 H D Glucose 404 H* Calcium 8.9 Cardiac Enzymes 03/13/25 Range/Units 01:54 Troponin I < 0.020 (0.0-0.045) ng/mL Liver Function 03/13/25 Range/Units 01:54 Total Bilirubin 0.6 (0.3-1.2) mg/dL AST 18 (0-34) U/L ALT 17 (10-49) U/L Alkaline Phosphatase 170 H (46-116) U/L Albumin 4.7 (3.4-4.8) gm/dL Urine 03/13/25 Range/Units 01:42 Urine Color Yellow (Lt Yel-Yel) Urine Clarity Turbid A (Clear/Hazy) Urine pH 5.5 (5.0-7.0) Ur Specific [place] 1.026 (1.001-1.035) Urine Protein Trace (Neg - Trace) Urine Glucose (UA) 3+ A (Negative) Quality Measures Quality Measures none Advance care planning discussed with:: patient Medications Home Medications and Allergies Home Medications ?Medication ?Instructions ?Recorded ?Confirmed ?Type alprazolam 0.5 mg tablet 0.5 mg PO QDAY PRN Anxiety 10/13/19 11/29/24 History insulin glargine 100 unit/mL (3 16 unit subcut DAILY 08/08/22 11/29/24 History mL) subcutaneous pen (Basaglar KwikPen U-100 Insulin) diphenhydramine HCl 25 mg capsule mg 11/29/24 History (Banophen) pregabalin 75 mg capsule mg 11/29/24 History ropinirole 0.5 mg tablet mg 11/29/24 History Allergies Allergy/AdvReac Type Severity Reaction Status Date / Time No Known Allergies Allergy Verified 03/07/25 15:28 Visit Medications Hydromorphone HCl (Hydromorphone Inj 2 Mg/Ml Vial) 0.5 mg IVP PRN HARINI Stop: 03/18/25 02:14 Last Admin: 03/13/25 04:38 Dose: 0.5 mg Fluconazole (Diflucan/Ns Ivpb) 200 mg in 100 mls @ 100 mls/hr IV X1 ONE Stop: 03/13/25 05:35 Discontinued Medications Sodium Chloride (Ns) 1,000 mls @ 999 mls/hr IV .Q1H1M ONE Stop: 03/13/25 03:10 Last Infusion: 03/13/25 04:04 Dose: Infused Piperacillin/Tazobactam/Dextrose (Zosyn) 3.375 gm in 50 mls @ 100 mls/hr IV X1 ONE Stop: 03/13/25 05:05 Last Admin: 03/13/25 05:15 Dose: 100 mls/hr Ondansetron HCl (Ondansetron Inj 2 Mg/Ml Inj 2 Ml) 4 mg IM X1 ONE; Protocol Stop: 03/13/25 00:32 Last Admin: 03/13/25 00:43 Dose: 4 mg Assessment & Plan Plan Patient is a 84-year-old female with a past medical history of diabetes mellitus, hypertension, multiple abdominal surgeries, recurrent bowel obstructions, peripheral neuropathy, chronic opioid use who presented to the ER complaining of nausea, vomiting, abdominal pain and constipation. #Recurrent SBO, secondary to adhesions CT abdomen pelvis shows findings suggestive of small bowel obstruction of the caliber change in the pelvis at the level of proximal ileum likely due to adhesions. Small hiatal hernia. General surgeon Dr. Zamora is consulted. Patient denies any fever, no evidence of Intra-abdominal infection or perforation, will hold off on antibiotics at this time. ? NG tube attached to DOROTHY ? Small bowel Gastrografin series after decompression of stomach ? Keep patient n.p.o. ? IV morphine as needed for pain ? Appreciate general surgery recommendations #RIKKI Likely secondary to dehydration, prerenal causes, ? IV fluids ? Strict input and output ? Gentle IV hydration ? Avoid nephrotoxic drugs #History of diabetes mellitus Poorly controlled diabetes mellitus, takes insulin Lantus 12 units at home, glucose 404,, negative urine ketones ? Insulin sliding scale every 6 hours ? Hypoglycemia protocol in place Plan of care discussed with attending dr Mayo Mendez pgy 2 Attending Provider Attestation/Addendum I have examined the patient, reviewed labs and imaging findings, discussed the case with the resident(s), and reviewed entered orders. I agree with the plan of care as outlined in this note, with these additional summaries/recommendations: 84-year-old female with past medical history of DM, hypertension, previous abdominal surgeries, recurrent bowel obstruction, chronic opiate use who presents to the ER with chief complaint of nausea vomiting abdominal pain and constipation. Patient found to have findings of small bowel obstruction on CT abdomen pelvis at the level of the proximal ileum likely due to adhesions. General surgery was consulted who recommended admission for further management. Will place NG tube to low intermittent suction, ordered small bowel series and continue to monitor closely. Leonel Huber MD
--- NOTE | 2025-03-13 05:29 | XR_ITS ---
Examination: Small bowel series was KUBs AP abdomen 4 views Date and time: The 2024 1011 hours INDICATIONS: Abdominal pain and distention streak TECHNIQUE AND FINDINGS: 120 cc Gastrografin administered through the feeding tube, 1 minute one hour to our films obtained These demonstrate contrast in distended small bowel loops but there appears to be some contrast in the colon on the 2:00 PM film IMPRESSION: Likely nonobstructive bowel gas pattern. Recommend follow-up abdomen film 6:00 PM 10:00 PM
--- NOTE | 2025-03-13 05:29 | XR_ITS ---
Examination: AP chest single view TECHNIQUE: Sitting AP chest portable single view Date and time: March 13, 2025 0637 hours Comparison March 07, 2025 INDICATIONS: Post orogastric tube placement. FINDINGS: Orogastric tube tip at the GE junction Minimal prominence of ventricle and Atelectasis at the lung bases Severe osteopenia IMPRESSION: Advance the orogastric tube 8 cm
[2025-03-13] MEDS: RINGERS LACTATED 1000 ML 1,000 ML 100 ML IV (06:00)
--- NOTE | 2025-03-13 06:03 | PC.CC ---
Patient is a 84 year-old female who presents to the hospital for a small bowel obstruction. Nely JEFFERSON made [id number] contact with patient. ASW introduced self, role, and reason for visit. Patient appeared alert and oriented to self, location, and situation. Patient was pleasant and engaged in initial assessment. Patient confirmed information on demographics and reports to living alone. Patient has a caregiver through [facility], Susy who comes to the home Friday-Friday 4-5 hours daily. Patient's son, Frederic Burrell is patient's next of kin . Patient ambulates with a rollator walker at home and needs assistance with her ADLs. Patient does not require oxygen at home. Her primary provider is Bharathi Dominguez and uses [facility] for prescription medications. Upon discharge patient plans to return home. respiratory services manager to follow up with any discharge needs.
[2025-03-13] MEDS: INSULIN LISPRO (AdmeLOG) 1 UNIT/0.01 ML UNIT SC (06:25)
[2025-03-13] MEDS: HEPARIN SOD INJ 5000 UNIT/ML VIAL SC ×3 (06:26→22:34)
[2025-03-13] MEDS: FLUCONAZOLE/NS 200 MG IVPB 200 MG/100 ML BAG 100 MG IV (06:28)
--- NOTE | 2025-03-13 07:20 | ESPR_ITS ---
<Statement entered by Pineda Perez MD - 03/17/25 16:25> I reviewed above note and agree with findings and plans. I have also personally examined the patient with medicine team and went over assessment and plan with medical team including international marketing specialist and resident physician. Documentation for date of: 03/13/25 Subjective Subjective Interval history: Vitals and labs reviewed. insulin regimen adjusted as BS >300, continue IVFs rate increased for RIKKI. For SBO continue with NGT on LIS , f/u gastrograffin study and follow up with surgery reccs. repeat renal panel ordered. Exam Vital Signs Temp Pulse Resp BP Pulse Ox O2 Del Method O2 Flow Rate 98.9 F 96 18 146/76 H 96 Nasal Cannula 1 03/13/25 05:59 03/13/25 06:02 03/13/25 06:02 03/13/25 06:02 03/13/25 06:02 03/13/25 06:02 03/13/25 06:02 Narrative Exam General: AOx3, cooperative Skin: Intact, no cyanosis or edema noted. HEENT: Atraumatic/normocephalic, ENRRIQUE, neck supple Heart: RRR, S1 and S2 without clicks or murmurs Lungs: Clear on auscultation bilaterally, no difficulty breathing Abdomen: Distended abdomen, mild tenderness lower quadrants, bowel sounds, absent Vascular: Peripheral pulses palpable Neuro: No focal neurological deficits noted. Objective Labs 03/13/25 01:12 03/13/25 01:54 Labs: Laboratory Results - last 24 hr 03/13/25 03/13/25 03/13/25 01:12 01:42 01:54 WBC 9.6 RBC 4.69 Hgb 12.7 Hct 38.3 MCV 82 MCH 27.1 MCHC 33.2 RDW Std Deviation 48.9 H Plt Count 186 D Neut % (Auto) 78 Lymph % (Auto) 12 [place] % (Auto) 9 Eos % (Auto) 1 Baso % (Auto) 1 Neut # (Auto) 7.5 Lymph # (Auto) 1.2 [place] # (Auto) 0.8 Eos # (Auto) 0.1 Baso # (Auto) 0.1 Immature Gran # (Auto) 0.03 H Absolute Nucleated RBC 0.00 Immature Gran % 0 Nucleated RBC % 0 PT INR APTT Sodium 137 Potassium 5.0 Chloride 102 Carbon Dioxide 22.8 Anion Gap 12 BUN 28 H Creatinine 1.7 H D Estim Creat Clear Calc 24.8 L eGFR 30 L BUN/Creatinine Ratio 16 Glucose 404 H* Calculated Osmolality 296 H Calcium 8.9 Corrected Calcium 8.9 Magnesium 2.0 Total Bilirubin 0.6 AST 18 ALT 17 Alkaline Phosphatase 170 H Troponin I < 0.020 Total Protein 7.7 Albumin 4.7 Globulin 3.0 Albumin/Globulin Ratio 1.6 Lipase 42 Ur Collection Type Clean Catch Urine Color Yellow Urine Clarity Turbid A Urine pH 5.5 Ur Specific [place] 1.026 Urine Protein Trace Urine Glucose (UA) 3+ A Urine Ketones Negative Urine Blood Negative Urine Nitrite Negative Urine Bilirubin Negative Urine Urobilinogen (Auto) Negative Ur Leukocyte Esterase Positive Urine RBC 58 H Urine WBC 33 H Ur Squamous Epith Cells 32 H Amorphous Crystals Present A Urine Bacteria 1+ A Hyaline Casts < 1 Urine Yeast (Budding) Present A 03/13/25 02:26 WBC RBC Hgb Hct MCV MCH MCHC RDW Std Deviation Plt Count Neut % (Auto) Lymph % (Auto) [place] % (Auto) Eos % (Auto) Baso % (Auto) Neut # (Auto) Lymph # (Auto) [place] # (Auto) Eos # (Auto) Baso # (Auto) Immature Gran # (Auto) Absolute Nucleated RBC Immature Gran % Nucleated RBC % PT 11.1 INR 1.0 APTT 26.3 Sodium Potassium Chloride Carbon Dioxide Anion Gap BUN Creatinine Estim Creat Clear Calc eGFR BUN/Creatinine Ratio Glucose Calculated Osmolality Calcium Corrected Calcium Magnesium Total Bilirubin AST ALT Alkaline Phosphatase Troponin I Total Protein Albumin Globulin Albumin/Globulin Ratio Lipase Ur Collection Type Urine Color Urine Clarity Urine pH Ur Specific [place] Urine Protein Urine Glucose (UA) Urine Ketones Urine Blood Urine Nitrite Urine Bilirubin Urine Urobilinogen (Auto) Ur Leukocyte Esterase Urine RBC Urine WBC Ur Squamous Epith Cells Amorphous Crystals Urine Bacteria Hyaline Casts Urine Yeast (Budding) Quality Measures Quality Measures none Advance care planning discussed with:: patient Assessment & Plan Assessment Current Active Medications: Generic Name Dose Route Start Last Admin Trade Name Freq PRN Reason Stop Dose Admin Acetaminophen 650 mg 03/13/25 05:31 Acetaminophen 325 Mg Tablet PO 04/12/25 05:17 Q6H PRN PAIN 1-3 OR FEVER > 101 Dextrose 50 ml 03/13/25 05:23 Dextrose 50%-Water Inj 50 Ml Syringe IV 04/12/25 05:22 Q15MIN PRN BG <50 OR BG <70 & pt unresponsive Glucagon 1 mg 03/13/25 05:23 Glucagon Inj 1 Mg Vial IM Q15MIN PRN BG <70, and no IV access Heparin Sodium (Porcine) 5,000 unit 03/13/25 06:00 03/13/25 06:26 Heparin Sod Inj 5000 Unit/Ml Vial SC 03/27/25 05:59 5,000 unit Q8HR HARINI Administration Lactated Ringer's 1,000 mls @ 125 mls/hr 03/13/25 06:58 Lactated Ringers IV 04/12/25 06:57 .Q8H HARINI Insulin Glargine 10 unit 03/13/25 21:00 Insulin Glargine (Lantus) 5 Unit/0.05 Ml (Per 5 Units) SC 04/12/25 20:59 HS HARINI Insulin Human Lispro 0 unit 03/13/25 06:00 03/13/25 06:25 Insulin Lispro (Admelog) 1 Unit/0.01 Ml Unit SC 04/12/25 05:59 4 unit Q6HR HARINI Administration Protocol Insulin Human Lispro 10 unit 03/13/25 07:30 Insulin Lispro (Admelog) 1 Unit/0.01 Ml Unit SC 04/12/25 07:29 ACHS [facility] Morphine Sulfate 4 mg 03/13/25 05:28 Morphine Sulf Inj 10 Mg/Ml Vial IVP Q4HR PRN PAIN SCALE 6-10 (Severe Ondansetron HCl 4 mg 03/13/25 05:18 Ondansetron Inj 2 Mg/Ml Inj 2 Ml IV 04/12/25 05:17 Q6H PRN NAUSEA OR VOMITING Protocol Sennosides 2 tab 03/13/25 05:18 Senna Tablet PO 04/12/25 05:17 BID PRN CONSTIPATION Protocol Plan 84-year-old female with a past medical history of diabetes mellitus, hypertension, multiple abdominal surgeries, recurrent bowel obstructions, peripheral neuropathy, chronic opioid use who presented to the ER complaining of nausea, vomiting, abdominal pain and constipation. #Recurrent SBO, secondary to adhesions CT abdomen pelvis shows findings suggestive of small bowel obstruction of the caliber change in the pelvis at the level of proximal ileum likely due to adhesions. Small hiatal hernia. General surgeon Dr. Zamora is consulted. Patient denies any fever, no evidence of Intra-abdominal infection or perforation, will hold off on antibiotics at this time. ? NG tube attached to DOROTHY ? Small bowel Gastrografin series after decompression of stomach ? Keep patient n.p.o. ? IV morphine as needed for pain ? Appreciate general surgery recommendations #RIKKI Likely secondary to dehydration, prerenal causes, ? IV fluids ? Strict input and output ? Gentle IV hydration ? Avoid nephrotoxic drugs #History of diabetes mellitus Poorly controlled diabetes mellitus, takes insulin Lantus 12 units at home, glucose 404,, negative urine ketones ? Insulin sliding scale every 6 hours ? Hypoglycemia protocol in place ? 10u lispro Case discussed with my attending Dr. Chris Bahena MD PGY-1
[2025-03-13] MEDS: ONDANSETRON INJ 2 MG/ML INJ 2 ML 4 MG IV (07:22)
[2025-03-13] MEDS: MORPHINE SULF INJ 10 MG/ML VIAL 4 MG IVP (07:23)
[2025-03-13] MEDS: INSULIN GLARGINE (Lantus) 5 UNIT/0.05 ML (PER 5 UNITS) 10 UNIT SC (07:24)
[2025-03-13] MEDS: RINGERS LACTATED 1000 ML 1,000 ML 125 ML IV ×4 (07:25→22:23)
[2025-03-13 08:29] LABS: Albumin, Serum 3.7 gm/dL (3.4-4.8); Anion Gap 12 (7-16); BUN/Creatinine Ratio 27 Ratio (12-20); Blood Urea Nitrogen 35 mg/dL (9-23); Calcium 7.4 mg/dL (8.3-10.6); Calcium (Corrected) 7.6 mg/dL (8.5-10.1); Carbon Dioxide 19.6 mMol/L (20.0-31.0); Chloride 110 mMol/L (98-107); Creatinine (Component) 1.3 mg/dL (0.6-1.3); Estimated Creatinine Clearance 32.4 mL/min (>60); Glucose 281 mg/dL (74-106); Osmolality,Calculated 301 (275-295); Phosphorous 4.7 mg/dL (2.4-5.1); Potassium 4.9 mMol/L (3.4-5.1); Sodium 142 mMol/L (136-145); eGFR 41 See Note
--- NOTE | 2025-03-13 08:50 | XR_ITS ---
Examination: AP chest single view Technique one AP portable semiupright chest single view Date and time: March 13, 2025 1015 hours INDICATIONS: Reposition orogastric tube FINDINGS: Orogastric tube in stomach satisfactory position Atelectasis both lower lung zones IMPRESSION: Orogastric tube in stomach satisfactory position
--- NOTE | 2025-03-13 08:54 | PC.NURSE ---
Patient had medium bowel movement and g-tube advanced.
--- NOTE | 2025-03-13 08:56 | PC.NURSE ---
Report given to Desi MCCORMACK.
[2025-03-13] MEDS: MORPHINE SULF INJ 10 MG/ML VIAL 2 MG IV (11:35)
[2025-03-13] MEDS: DEXTROSE 50%-WATER INJ 50 ML SYRINGE IV (11:35)
[2025-03-13] MEDS: DICLOFENAC 1% TOP GEL 100 GM TUBE TOP ×2 (14:00→17:32)
[2025-03-13] MEDS: HYDROmorphone INJ 2 MG/ML VIAL 0.25 MG IV ×2 (15:30→20:04)
--- NOTE | 2025-03-13 16:39 | PC.NURSE ---
[facility] [id number].
--- NOTE | 2025-03-13 19:54 | PC.NURSE ---
called hazmat technician re abdominal series if still need to take more- per chick grader completed series.
--- NOTE | 2025-03-13 20:25 | PC.NURSE ---
removed lidocaine patch on left lower lateral rib.
[2025-03-13] MEDS: FAMOTIDINE INJ 10 MG/ML VIAL 2 ML 20 MG IVP (20:34)
[2025-03-13 21:00] LABS: Collection Type, Urine Clean Catch
[2025-03-13 21:08] LABS: Bilirubin,Urine Negative (Negative); Blood,Urine 2+ (Negative); Clarity,Urine Clear (Clear/Hazy); Color,Urine Yellow (Lt Yel-Yel); Glucose, Urine Negative (Negative); Ketones,Urine Trace (Negative); Leukocyte Esterase,Urine Positive (Negative); Nitrite,Urine Negative (Negative); Protein,Urine 1+ (Neg - Trace); RBC,Urine 94 /hpf (0-3); Specific Gravity,Urine 1.032 (1.001-1.035); Squamous Epithelial Cell,Urine 2 /hpf (0-5); Urobilinogen,Urine Negative mg/dL (0.0-1.0); WBC,Urine 40 /hpf (0-5)
[2025-03-13] MEDS: METOCLOPRAMIDE INJ 5 MG/ML VIAL 2 ML 2.5 MG IVP (22:24)
[2025-03-13] MEDS: MELATONIN 3 MG TABLET PO (23:53)
[2025-03-14] VITALS (9 sets, daily range): BP systolic 147–169; BP diastolic 71–85; PULSE 78–89; RESP 14–18; TEMP 36.1–36.7; O2SAT 89–99; BMI 24.5
--- NOTE | 2025-03-14 00:03 | PC.NURSE ---
pt wanted medicine for sleep- Seen and examined by Dr. Mendez. md updated pt re plan of care.
--- NOTE | 2025-03-14 00:05 | PD.RESEVENT ---
Documentation for date of: 03/14/25 Event Note Event Note: Pt is disappointed that she is unable to take her home medications, including- alprazolam, lyrica, and diphenhydramine, reported that she has been struggling with insomnia for the past 7 years, and would like something to help her sleep. I evaluated the patient at the bedside ; RN at the bedside reported that she had reattached NG tube to suction around 1930 hrs, minimal gastric fluid in the tube, around 35- 50 ml , none in the suction container, reviwed imaging, gastrograffin series showed nonobstructive pattern with some contrast in colon inb tthe afternoon. - PO melatonin 3mg x 1 was given but patient is still agitated and concerned about not being able to fall asleep. Asking for iv ativan but Risks of iv sedatives were discussed, pt understood the adverse events. - iv benadyrl 50mg x 1 was ordered. - further management per primary team, if obstrcution relieved can start home medications, Quresh [id number]
[2025-03-14] MEDS: RINGERS LACTATED 1000 ML 1,000 ML 125 ML IV ×2 (06:34→14:12)
[2025-03-14] MEDS: METOCLOPRAMIDE INJ 5 MG/ML VIAL 2 ML 2.5 MG IVP ×2 (06:37→14:12)
[2025-03-14] MEDS: HEPARIN SOD INJ 5000 UNIT/ML VIAL SC ×3 (06:51→22:06)
[2025-03-14 06:57] LABS: INR 1.1 (0.9-1.3); Prothrombin Time 11.9 Seconds (9.0-12.2)
[2025-03-14 07:03] LABS: Alanine Aminotransferase 13 U/L (10-49); Albumin, Serum 3.5 gm/dL (3.4-4.8); Alkaline Phosphatase 118 U/L (46-116); Anion Gap 9 (7-16); Aspartate Amino Transferase 17 U/L (0-34); BUN/Creatinine Ratio 19 Ratio (12-20); Bilirubin,Direct 0.1 mg/dL (0.0-0.3); Bilirubin,Total 0.5 mg/dL (0.3-1.2); Blood Urea Nitrogen 15 mg/dL (9-23); Calcium 7.9 mg/dL (8.3-10.6); Carbon Dioxide 22.5 mMol/L (20.0-31.0); Cardiac Risk Estimate 3.2 RATIO (3.7-5.6); Chloride 110 mMol/L (98-107); Cholesterol 134 mg/dL (132-200); Creatinine (Component) 0.8 mg/dL (0.6-1.3); Estimated Creatinine Clearance 52.7 mL/min (>60); Glucose 198 mg/dL (74-106); HDL Cholesterol 42 mg/dL (40-60); LDL Cholesterol,Calculated 58 mg/dL (0-130); Magnesium 1.7 mg/dL (1.6-2.6); Osmolality,Calculated 288 (275-295); Phosphorous 2.5 mg/dL (2.4-5.1); Potassium 4.1 mMol/L (3.4-5.1); Sodium 141 mMol/L (136-145); Thyroid Stimulating Hormone 0.87 uIU/mL (0.55-4.78); Total Protein 5.6 gm/dL (5.7-8.2); Triglycerides 170 mg/dL (30-150); eGFR > 60 See Note
[2025-03-14 07:22] LABS: Basophils # (Auto) 0.1 Thou/mm3 (0.0-0.2); Basophils % (Auto) 1 % (0-2.5); Eosinophils # (Auto) 0.2 Thou/mm3 (0.0-0.5); Eosinophils % (Auto) 3 % (0-10); Hematocrit 31.4 % (36.0-46.0); Hemoglobin 10.1 g/dL (12.0-16.0); Immature Granulocytes % (Auto) 0 % (0-0); Immature Granulocytes Auto 0.01 Thou/mm3 (0.00-0.00); Lymphocytes # (Auto) 1.5 Thou/mm3 (1.0-4.8); Lymphocytes % (Auto) 32 % (10-50); Mean Corpuscular HGB Conc 32.2 g/dl (31.0-37.0); Mean Corpuscular Hemoglobin 27.3 pg (25.0-35.0); Mean Corpuscular Volume 85 fL (80-100); Monocytes # (Auto) 0.5 Thou/mm3 (0.0-0.8); Monocytes % (Auto) 11 % (0-12); Neutrophils # (Auto) 2.4 Thou/mm3 (1.8-7.7); Neutrophils % (Auto) 52 % (37-80); Nucleated Red Blood Cell % 0 /100 WBC (0); Platelet Count 219 Thou/mm3 (140-440); RDW Standard Deviation 50.8 fL (36.4-46.3); White Blood Count 4.7 Thou/mm3 (3.6-11.0)
[2025-03-14] MEDS: FAMOTIDINE INJ 10 MG/ML VIAL 2 ML 20 MG IVP (10:05)
[2025-03-14] MEDS: PREGABALIN 75 MG CAPSULE PO ×2 (10:05→22:07)
--- NOTE | 2025-03-14 13:09 | ESPR_ITS ---
<Statement entered by Pineda Perez MD - 03/17/25 16:25> I reviewed above note and agree with findings and plans. I have also personally examined the patient with medicine team and went over assessment and plan with medical team including financial internship and resident physician. Documentation for date of: 03/14/25 Subjective Subjective Interval history: Patient seen today at the bedside found awake, alert, orientedx3. No active complaints at this time. No overnight events reported. Vitals and labs reviewed. As patient has been having bowel movements and gastrograffin observed on imaging in lisset colon. NG tube was discontinued and patient was started on liquid diet will advance as tolerated, as per general surgery recommendations. Home meds restarted Exam Vital Signs Temp Pulse Resp BP Pulse Ox O2 Del Method O2 Flow Rate 97.8 F 80 16 154/85 H 95 Room Air 2 03/14/25 12:00 03/14/25 12:00 03/14/25 12:00 03/14/25 12:00 03/14/25 12:00 03/14/25 12:00 03/14/25 08:00 Narrative Exam Physical Exam GENERAL: NAD, AAOx3 HEENT: Moist mucosa. Eyes open, symmetrical, & clear CARDIO: Heart RRR, no obvious murmurs PULM: No noted coughing/dyspnea CTA B/L, no R/W/R GI: Abdomen soft, nondistended, no pain on palpation. BS+ SKIN/MSK/EXT: No wounds/rashes/edema/amputations, no pain on palpation. Pedal pulses present B/L NEURO: AAOx3, no focal neuro deficits, able to move all 4 extremities Objective Labs 03/14/25 05:34 03/14/25 05:34 Labs: Laboratory Results - last 24 hr 03/13/25 03/14/25 20:44 05:34 WBC 4.7 D RBC 3.70 L Hgb 10.1 L D Hct 31.4 L MCV 85 MCH 27.3 MCHC 32.2 RDW Std Deviation 50.8 H Plt Count 219 D Neut % (Auto) 52 Lymph % (Auto) 32 [place] % (Auto) 11 Eos % (Auto) 3 Baso % (Auto) 1 Neut # (Auto) 2.4 Lymph # (Auto) 1.5 [place] # (Auto) 0.5 Eos # (Auto) 0.2 Baso # (Auto) 0.1 Immature Gran # (Auto) 0.01 H Absolute Nucleated RBC 0.00 Immature Gran % 0 Nucleated RBC % 0 PT 11.9 INR 1.1 Sodium 141 Potassium 4.1 D Chloride 110 H Carbon Dioxide 22.5 Anion Gap 9 BUN 15 Creatinine 0.8 D Estim Creat Clear Calc 52.7 L eGFR > 60 BUN/Creatinine Ratio 19 Glucose 198 H D Calculated Osmolality 288 Calcium 7.9 L Phosphorus 2.5 Magnesium 1.7 Total Bilirubin 0.5 Direct Bilirubin 0.1 AST 17 ALT 13 Alkaline Phosphatase 118 H D Total Protein 5.6 L Albumin 3.5 Triglycerides 170 H Cholesterol 134 LDL Cholesterol, Calc 58 HDL Cholesterol 42 Cholesterol/HDL Ratio 3.2 L TSH 0.87 Ur Collection Type Clean Catch Urine Color Yellow Urine Clarity Clear Urine pH 6.0 Ur Specific [place] 1.032 Urine Protein 1+ A Urine Glucose (UA) Negative Urine Ketones Trace Urine Blood 2+ A Urine Nitrite Negative Urine Bilirubin Negative Urine Urobilinogen (Auto) Negative Ur Leukocyte Esterase Positive Urine RBC 94 H Urine WBC 40 H Ur Squamous Epith Cells 2 Urine Bacteria None Quality Measures Quality Measures none Advance care planning discussed with:: patient Assessment & Plan Assessment Current Active Medications: Generic Name Dose Route Start Last Admin Trade Name Freq PRN Reason Stop Dose Admin Acetaminophen 650 mg 03/13/25 05:31 Acetaminophen 325 Mg Tablet PO 04/12/25 05:17 Q6H PRN PAIN 1-3 OR FEVER > 101 Alprazolam 0.5 mg 03/14/25 10:19 Alprazolam 0.25 Mg Tablet PO 03/20/25 08:59 QDAY PRN anxiety/insommnia Dextrose 50 ml 03/13/25 05:23 03/13/25 11:35 Dextrose 50%-Water Inj 50 Ml Syringe IV 04/12/25 05:22 50 ml Q15MIN PRN Administration BG <50 OR BG <70 & pt unresponsive Diclofenac Sodium 1 gm 03/13/25 10:00 03/14/25 06:27 Diclofenac 1% Top Gel 100 Gm Tube TOP 04/12/25 09:59 Not Given 5 TIMES DAILY [facility] Protocol Famotidine 20 mg 03/13/25 09:00 03/14/25 10:05 Famotidine Inj 10 Mg/Ml Vial 2 Ml IVP 04/12/25 08:59 20 mg BID HARINI Administration Glucagon 1 mg 05/18/25 05:23 Glucagon Inj 1 Mg Vial IM Q15MIN PRN BG <70, and no IV access Heparin Sodium (Porcine) 5,000 unit 03/13/25 06:00 03/14/25 06:51 Heparin Sod Inj 5000 Unit/Ml Vial SC 03/27/25 05:59 5,000 unit Q8HR HARINI Administration Hydromorphone HCl 0.25 mg 03/13/25 15:20 03/13/25 20:04 Hydromorphone Inj 2 Mg/Ml Vial IV 03/18/25 15:19 0.25 mg Q4HR PRN Administration SEVERE PAIN 7-10 Protocol Lactated Ringer's 1,000 mls @ 125 mls/hr 03/13/25 06:58 03/14/25 06:34 Lactated Ringers IV 04/12/25 06:57 125 mls/hr .Q8H HARINI Administration Insulin Glargine 10 unit 03/13/25 21:00 03/13/25 22:31 Insulin Glargine (Lantus) 5 Unit/0.05 Ml (Per 5 Units) SC 04/12/25 20:59 Not Given HS [facility] Insulin Human Lispro 0 unit 03/13/25 06:00 03/14/25 12:39 Insulin Lispro (Admelog) 1 Unit/0.01 Ml Unit SC 04/12/25 05:59 Not Given Q6HR [facility] Protocol Insulin Human Lispro 10 unit 03/13/25 07:30 03/14/25 12:38 Insulin Lispro (Admelog) 1 Unit/0.01 Ml Unit SC 04/12/25 07:29 Not Given ACHS [facility] Metoclopramide HCl 2.5 mg 03/13/25 14:00 03/14/25 06:37 Metoclopramide Inj 5 Mg/Ml Vial 2 Ml IVP 04/12/25 13:59 2.5 mg Q8HR HARINI Administration Protocol Morphine Sulfate 4 mg 03/13/25 05:28 03/13/25 07:23 Morphine Sulf Inj 10 Mg/Ml Vial IVP 4 mg Q4HR PRN Administration PAIN SCALE 6-10 (Severe Protocol Pregabalin 75 mg 03/14/25 09:00 03/14/25 10:05 Pregabalin 75 Mg Capsule PO 04/13/25 08:59 75 mg BID HARINI Administration Sennosides 2 tab 03/13/25 05:18 Senna Tablet PO 04/12/25 05:17 BID PRN CONSTIPATION Protocol Plan 84-year-old female with a past medical history of diabetes mellitus, hypertension, multiple abdominal surgeries, recurrent bowel obstructions, peripheral neuropathy, chronic opioid use who presented to the ER complaining of nausea, vomiting, abdominal pain and constipation. #Recurrent SBO, secondary to adhesions-improving CT abdomen pelvis shows findings suggestive of small bowel obstruction of the caliber change in the pelvis at the level of proximal ileum likely due to adhesions. Small hiatal hernia. General surgeon Dr. Zamora is consulted. Patient denies any fever, no evidence of Intra-abdominal infection or perforation, will hold off on antibiotics at this time. NG tube attached to DOROTHY gastrograffin study showed contrast in colon and NGT was discontinued ? on liquid diet, adv as tolerated ? IV morphine as needed for pain ? Appreciate general surgery recommendations #RIKKI-resolved Likely secondary to dehydration, prerenal causes, ? Strict input and output ? Avoid nephrotoxic drugs #History of diabetes mellitus Poorly controlled diabetes mellitus, takes insulin Lantus 12 units at home, glucose 404,, negative urine ketones ? Insulin sliding scale every 6 hours ? Hypoglycemia protocol in place ? 10u lispro Disposition: medsurg, adv diet Fluids: None Feeding: full liquid Thrombo prophylaxis: heparin Gastric Ulcer prophylaxis: none CODE STATUS: Full code Case discussed with my senior Dr. Rollins and my attending Dr. Chris Bahena MD PGY-1 LPatient examined and case discussed with the team including attending physician. Note reviewed, I agree with the care plan as documented. Ms Celeste is a 84-year-old female with a past medical history of diabetes mellitus, hypertension, multiple abdominal surgeries, recurrent bowel obstructions, peripheral neuropathy, chronic opioid use who is admitted for vomiting, abdominal pain and constipation due to recurrent SBO, secondary to adhesions- now improving. CT abdomen pelvis shows findings suggestive of small bowel obstruction of the caliber change in the pelvis at the level of proximal ileum likely due to adhesions. Small hiatal hernia. General surgeon Dr. Zamora is consulted, appreciate recommendations. Please refer to the note above for further details. - Samy Rollins MD, PGY 2 Disclaimer: The document may contain phonetic/typographic errors due to voice recognition software. These errors are purely due to imperfections in the software program and should not be misconstrued in any way to compromise the substance of the patient's medical care during this visit.
[2025-03-14] MEDS: GABAPENTIN 300 MG CAPSULE PO ×2 (14:11→22:06)
[2025-03-14] MEDS: rOPINIRole HCL 0.25 MG TABLET 0.5 MG PO (14:11)
--- NOTE | 2025-03-14 15:30 | PC.SS ---
rounding note: Gen surgery consulting. Adv. diet. Patient resides alone. Discussion of SNF vs HH will be made. No PT eval yet.
--- NOTE | 2025-03-14 17:56 | PD.SURCONS ---
HPI Consult details History of present illness: 84F with HTN, DM, multiple abdominal surgeries and history of SBO presenting with pain, vomiting and constipation. Pt reports she had symptoms for 2 days, with multiple episodes of nonbloody vomiting, workup consistent with SBO. She underwent small bowel series showing contrast in colon. Pt also had a BM yesterday and only 50cc of NG output overnight PMH: HTN, DM, recurrent SBO. PSHx: Hysterectomy, cholecystectomy, appendectomy Meds: No antiplt or anticoagulation Allergies: NKDA Review of Systems Review of Systems ROS Unobtainable: All systems reviewed & no additional complaints except as documented Meds Home Medications and Allergies Home Medications ?Medication ?Instructions ?Recorded ?Confirmed ?Type alprazolam 0.5 mg tablet 0.5 mg PO QDAY PRN anxiety 10/13/19 03/14/25 History insulin glargine 100 unit/mL (3 12 unit subcut DAILY 08/08/22 03/14/25 History mL) subcutaneous pen (Basaglar KwikPen U-100 Insulin) pregabalin 75 mg capsule 75 mg PO Q12H 11/29/24 03/14/25 History ropinirole 0.5 mg tablet 0.5 mg PO QDAY 11/29/24 03/14/25 History gabapentin 300 mg capsule 300 mg PO TID 03/14/25 03/14/25 History Allergies Allergy/AdvReac Type Severity Reaction Status Date / Time No Known Allergies Allergy Verified 03/07/25 15:28 Exam Vital Signs Temp Pulse Resp BP Pulse Ox O2 Del Method O2 Flow Rate 98.0 F 79 14 157/80 H 94 L Room Air 2 03/14/25 16:00 03/14/25 16:00 03/14/25 16:00 03/14/25 16:00 03/14/25 16:00 03/14/25 16:00 03/14/25 08:00 Constitutional Constitutional: no acute distress Routine Respiratory Exam Respiratory: Present no resp distress Routine Abdominal Exam Abdominal: Present soft; Absent tenderness or distended Results Results: Laboratory Laboratory results: results reviewed Results: Imaging Abdominal x-ray: report reviewed and image reviewed CT scan - abdomen: report reviewed and image reviewed Assessment & Plan Plan 84F with HTN, DM and history of abdominal surgeries with recurrent SBO presenting with another episode which has resolved Advance diet as tolerated
[2025-03-14] MEDS: CELECOXIB 100 MG CAPSULE 200 MG PO (18:13)
[2025-03-14] MEDS: INSULIN LISPRO (AdmeLOG) 1 UNIT/0.01 ML UNIT SC (20:48)
[2025-03-14] MEDS: INSULIN GLARGINE (Lantus) 5 UNIT/0.05 ML (PER 5 UNITS) 10 UNIT SC (20:49)
[2025-03-14] MEDS: ALPRazoLAM 0.25 MG TABLET 0.5 MG PO (23:33)
[2025-03-15] VITALS: BP 162/82; PULSE 73; RESP 16; TEMP 36.6; O2SAT 94
[2025-03-15 04:00] VITALS: BP 131/69; PULSE 74; RESP 18; TEMP 36.3; O2SAT 93
[2025-03-15] MEDS: GABAPENTIN 300 MG CAPSULE PO ×2 (05:02→14:09)
[2025-03-15] MEDS: HEPARIN SOD INJ 5000 UNIT/ML VIAL SC (05:11)
[2025-03-15 05:55] LABS: Basophils # (Auto) 0.1 Thou/mm3 (0.0-0.2); Basophils % (Auto) 1 % (0-2.5); Eosinophils # (Auto) 0.3 Thou/mm3 (0.0-0.5); Eosinophils % (Auto) 4 % (0-10); Hematocrit 36.8 % (36.0-46.0); Hemoglobin 11.6 g/dL (12.0-16.0); Immature Granulocytes % (Auto) 0 % (0-0); Immature Granulocytes Auto 0.02 Thou/mm3 (0.00-0.00); Lymphocytes # (Auto) 3.2 Thou/mm3 (1.0-4.8); Lymphocytes % (Auto) 46 % (10-50); Mean Corpuscular HGB Conc 31.5 g/dl (31.0-37.0); Mean Corpuscular Hemoglobin 27.4 pg (25.0-35.0); Mean Corpuscular Volume 87 fL (80-100); Monocytes % (Auto) 14 % (0-12); Neutrophils # (Auto) 2.4 Thou/mm3 (1.8-7.7); Neutrophils % (Auto) 35 % (37-80); Nucleated Red Blood Cell % 0 /100 WBC (0); Platelet Count 222 Thou/mm3 (140-440); RDW Standard Deviation 51.2 fL (36.4-46.3); Red Blood Count 4.23 Miln/mm3 (4.00-5.20); White Blood Count 6.9 Thou/mm3 (3.6-11.0)
[2025-03-15] MEDS: CELECOXIB 100 MG CAPSULE 200 MG PO (06:20)
[2025-03-15 06:22] LABS: Anion Gap 10 (7-16); BUN/Creatinine Ratio 11 Ratio (12-20); Blood Urea Nitrogen 8 mg/dL (9-23); Calcium 8.5 mg/dL (8.3-10.6); Chloride 108 mMol/L (98-107); Creatinine (Component) 0.7 mg/dL (0.6-1.3); Estimated Creatinine Clearance 60.3 mL/min (>60); Glucose 163 mg/dL (74-106); Osmolality,Calculated 287 (275-295); Potassium 4.2 mMol/L (3.4-5.1); Sodium 143 mMol/L (136-145); eGFR > 60 See Note
[2025-03-15] MEDS: INSULIN LISPRO (AdmeLOG) 1 UNIT/0.01 ML UNIT 5 UNIT SC ×2 (07:40→12:00)
[2025-03-15] MEDS: INSULIN LISPRO (AdmeLOG) 1 UNIT/0.01 ML UNIT SC ×2 (07:40→12:00)
[2025-03-15 07:45] VITALS: PULSE 76; RESP 18; RESP 95
[2025-03-15 07:49] VITALS: BP 146/80; PULSE 76; RESP 18; TEMP 36.5; O2SAT 94
[2025-03-15] MEDS: rOPINIRole HCL 0.25 MG TABLET 0.5 MG PO (09:18)
[2025-03-15] MEDS: PREGABALIN 75 MG CAPSULE PO (09:19)
--- NOTE | 2025-03-15 09:48 | ESDS_ITS ---
<Statement entered by Samy Rollins MD - 03/15/25 16:14> Patient was examined with the team including attending physician. Note reviewed, I agree with the discharge plan as documented. - Samy Rollins MD PGY2 Disclaimer: The document may contain phonetic/typographic errors due to voice recognition software. These errors are purely due to imperfections in the software program and should not be misconstrued in any way to compromise the substance of the patient's medical care during this visit. Planned Discharge Date 03/15/25 DS: Providers Provider Date of admission: 03/13/25 05:18 Primary care physician: Bharathi Dominguez MD Admitting Provider: Leonel Huber MD Attending Provider on Admission: Pineda Perez MD Consults: 03/13/25 04:30 Consult to General Surgery Stat Comment: Consulting Provider: Melva Villanueva Attending Provider on DC: Pineda Perez MD Discharging Provider: Anthony Bahena MD Anticipated date of discharge: 03/15/25 DS: Diagnosis Problem List Completed Was Problem List Reviewed/Reconciled?: Yes Hospital Course Hospital Course Hospital course: 84-year-old female with past medical history of diabetes, hypertension, multiple abdominal surgeries, recurrent bowel obstructions, peripheral neuropathy, chronic opiate use who presented to the ER due to nausea vomiting abdominal pain constipation. Patient was admitted for small bowel obstruction. During hospital stay NG tube was placed on my intermittent suction for stomach decompression, patient had multiple bowel movements prior to general surgery examination and recommended no surgical intervention at this time. Patient was started on diet and was advanced as tolerated. At this time patient is medically stable for discharge. Follow up with primary care physician within 1 week of discharge. Should any symptoms recur or worsen patient is instructed to return to the ED. Problem list: #Recurrent small bowel obstructions likely secondary to intra-abdominal adhesions #RIKKI?resolved #History of diabetes mellitus Case discussed with my senior Dr. Rollins and my attending Dr. Chris Bahena MD PGY-1 Status at Discharge Functional status at discharge: independent ambulation Overall status at discharge: patient is back to baseline Time Spent with Patient Time attestation: Total time spent providing and/or coordinating discharge services: Time spent: Greater than 30 minutes Exam Vital Signs Temp Pulse Resp BP Pulse Ox O2 Del Method O2 Flow Rate 97.7 F 76 18 146/80 H 94 L Room Air 2 03/15/25 07:49 03/15/25 07:49 03/15/25 07:49 03/15/25 07:49 03/15/25 07:49 03/15/25 07:49 03/14/25 08:00 Narrative Exam Physical Exam GENERAL: NAD, AAOx3 HEENT: Moist mucosa. Eyes open, symmetrical, & clear CARDIO: Heart RRR, no obvious murmurs PULM: No noted coughing/dyspnea CTA B/L, no R/W/R GI: Abdomen soft, nondistended, no pain on palpation. BS+ SKIN/MSK/EXT: No wounds/rashes/edema/amputations, no pain on palpation. Pedal pulses present B/L NEURO: AAOx3, no focal neuro deficits, able to move all 4 extremities Discharge Plan Plan Patient Disposition: HOME (Self Care) Care Plan Goals: Follow up with primary care physician within 1 week of discharge Should any symptoms recur or worsen patient is instructed to return to the ED. Prescriptions/Referrals Prescriptions/Med Rec: Continued alprazolam 0.5 mg tablet 0.5 mg PO QDAY PRN (Reason: anxiety) Patient Comments: TAKE ONE TABLET BY MOUTH EVERY DAY NEEDED FOR ANXIETY pregabalin 75 mg capsule 75 mg PO Q12H Patient Comments: TAKE 1 CAPSULE BY MOUTH TWICE A DAY ropinirole 0.5 mg tablet 0.5 mg PO QDAY Patient Comments: 1 tablet by mouth every day. celecoxib 200 mg capsule 200 mg PO BID PRN (Reason: pain) Qty: 14 0RF cholecalciferol (vitamin D3) 1,250 mcg (50,000 unit) tablet 1,250 mcg PO QWEEK Qty: 7 0RF calcium carbonate [Calcium 600] 600 mg calcium (1,500 mg) tablet 600 mg PO BID Qty: 60 0RF insulin glargine [Basaglar KwikPen U-100 Insulin] 100 unit/mL (3 mL) insulin pen 12 unit subcut DAILY Patient Comments: INJECT 16 UNITS SUBCUTANEOUSLY TWICE DAILY FOR DIABETES Rx Instructions: PER SLIDING SCALE PER PT. gabapentin 300 mg capsule 300 mg PO TID Patient Comments: TAKE 1 CAPSULE BY MOUTH THREE TIMES A DAY Referrals: [facility] [Outside] Bharathi Dominguez MD [Primary Care Provider] - Patient/Caregiver Discharge Instructions Education Materials: Small Bowel Obstruction, UITs Women Print Language: Danish Stand Alone Forms: [employer] Award Info., Patient Portal Info Letter Discharge Order Discharge Orders: Discharge (Routine); Ordered 03/15/25 Ordered By: Anthony Bahena Quality Discharge Quality Measures VTE prophylaxis
--- NOTE | 2025-03-15 10:12 | PC.SS ---
SS update: plan is to d/c the patient home today.
[2025-03-15 12:00] VITALS: BP 144/74; PULSE 83; RESP 18; TEMP 36.1; O2SAT 90
[2025-03-15] MEDS: ACETAMINOPHEN 325 MG TABLET 650 MG PO (12:44)
== END 2025-03-15 15:05 | disposition home or self-care (01) | DRG 389 ==
LOC: SERX 03-13 04:36 → SERHOLD 03-13 05:38 → S3NX 03-13 15:43
PROVIDERS: Physician Assistant; Student in an Organized Health Care Education/Training Program; Admitting Provider Student in an Organized Health Care Education/Training Program; Emergency Provider Emergency Medicine; PCP Internal Medicine; Visit Provider Internal Medicine
DX: K56.50 Intestinal adhesions [bands], unspecified as to partial versus complete obstruction (principal); N17.9 Acute kidney failure, unspecified; N39.0 Urinary tract infection, site not specified; E11.65 Type 2 diabetes mellitus with hyperglycemia; E87.5 Hyperkalemia; E11.42 Type 2 diabetes mellitus with diabetic polyneuropathy; I10 Essential (primary) hypertension; K44.9 Diaphragmatic hernia without obstruction or gangrene; E86.0 Dehydration; G47.00 Insomnia, unspecified; Z90.710 Acquired absence of both cervix and uterus; Z90.49 Acquired absence of other specified parts of digestive tract; Z79.4 Long term (current) use of insulin; Z79.891 Long term (current) use of opiate analgesic
CPT/HCPCS: 36415; 71260; 74177; 74250; 80048; 80053; 80061; 80069; 80076; 81001; 83690; 83735; 84100; 84443; 84484; 85025; 85610; 85730; 87081; 93005; 96361; 96365; 96372; 96375; 99291; A4649; A4699; J1171; J1450; J1644; J1815; J2270; J2405; J2543; J2765; J3490; J7030; J7120; Q9967; A9270

== ENCOUNTER 2025-03-23 13:49 | Outpatient (AMB) | payer MEDICARE, MEDICAID, SELFPAY ==
[2025-03-23 13:57] VITALS: BP 120/73; PULSE 96; RESP 18; TEMP 35.7; O2SAT 94
--- NOTE | 2025-03-23 13:57 | PD.RESCLINIC ---
Vital Signs 03/23/25 13:57 BP 120/73 Blood Pressure Source Automatic Cuff Blood Pressure Location Left Upper Arm Position Sitting Respiration 18 Pulse 96 Pulse Source Monitor Temp 96.3 F L Temp Source Temporal Artery Scan Pulse Oximetry (%) 94 L Oxygen Delivery Method Room Air Allergies/Meds Allergies & Medications Allergies No Known Allergies Allergy (Verified 03/23/25 13:58) Medication Reconciliation alprazolam 0.5 mg tablet 0.5 mg PO QDAY PRN anxiety 10/13/19 [History Confirmed 03/23/25] insulin glargine 100 unit/mL (3 mL) subcutaneous pen (Basaglar KwikPen U-100 Insulin) 12 unit subcut DAILY 08/08/22 [History Confirmed 03/23/25] pregabalin 75 mg capsule 75 mg PO Q12H 11/29/24 [History Confirmed 03/23/25] ropinirole 0.5 mg tablet 0.5 mg PO QDAY 11/29/24 [History Confirmed 03/23/25] calcium carbonate (Calcium 600) 600 mg PO BID #60 tabs 03/07/25 [Rx Confirmed 03/23/25] cholecalciferol (vitamin D3) 1,250 mcg (50,000 unit) tablet 1,250 mcg PO QWEEK #7 tabs 03/07/25 [Rx Confirmed 03/23/25] gabapentin 300 mg capsule 300 mg PO TID 03/14/25 [History Confirmed 03/23/25] celecoxib 200 mg capsule 200 mg PO BID PRN pain #20 caps 03/23/25 [Rx] MA Intake Visit Data Collection New Patient or Established: Established Patient (seen at [facility] within 3 years) Seen by Clinical Staff ONLY (RN/MA): No Pain Present Currently: No Pain scale:: 8 Pain Scale Used: [place]-Gray/Numerical Peace Officer Required: No PCP or OBGYN visit in last 3 months: No Hx Now: No Do You Feel Safe at Home: Yes Authorities Contacted: N/A Smoking Status Smoking Status: Never smoker Immunization / Flu Flu Vaccine in the Last 12 Months: No Flu Vaccine Exclusion Criteria: No Exclusion Criteria Past Medical History Past Medical History NEUROLOGIC: Positive Migraine; Negative Neurological Disorders or Seizures CARDIAC: Positive Edema, Hypertension and Varicose Veins; Negative Cardiac Disorders or Congestive Heart Failure RESPIRATORY: Positive Bronchitis and Pneumonia; Negative Chronic Obstructive Pulmonary Disease (COPD), Asthma or Tuberculosis GASTROINTESTINAL: Positive Gastrointestinal Disorders, Gall Bladder Disease, Ulcer and Gastroesophageal Reflux Disease; Negative Hepatitis GENITOURINARY: Negative Genitourinary Disorders, Renal Disease or Kidney Stones REPRODUCTIVE: Positive Previous Pregnancies MUSCULOSKELETAL: Positive Arthritis and Fractures ENT: Positive Cataracts ENDOCRINE: Positive Endocrine Disorders and Diabetes Mellitus Type 2; Negative Diabetes Mellitus Type 1 HEMATOLOGIC: Negative Blood Disorders or Sickle Cell Disease PSYCHO/SOCIAL: Positive Depression and Anxiety OTHER HISTORY: Positive Falls, Chicken Pox, Measles, Mumps and Cancer; Negative Hospitalization, Blood Transfusions, Blood Transfusion Reaction, Anesthesia Reactions, Chemotherapy or Radiation Therapy Family History FAMILY HISTORY: Negative Family Cardiac Disorders Surgical History SURGICAL: Positive Tonsillectomy, Joint Replacement, Hysterectomy and Tubal Ligation; Negative Cardiac Surgery Social History SMOKING STATUS: Smoking status: Never smoker SECOND HAND EXPOSURE: second hand exposure: No ALCOHOL: Alcohol Intake: Never HOUSING: Housing: Apartment LIVES WITH: Lives With: Caregiver and Children Patient Portal Questionaires Social History Living Situation History Housing: Apartment Housing Other:: has caregiver 5 days/week Tobacco History Smoking Status: Never smoker Second Hand Smoke Exposure: No Alcohol History Alcohol Intake: Never Domestic Abuse History Do You Feel Safe at Home: Yes Review of Systems Report any current symptoms Only answer those that you have currently: Past Medical History Past Medical History Have you ever been diagnosed with any of the following: Neurological Problems Seizures: No Migraine: Yes Cardiology Problems Congestive Heart Failure: No Edema: Yes Hypertension: Yes Varicose Veins: Yes Respiratory Problems Chronic Obstructive Pulmonary Disease (COPD): No Asthma: No Bronchitis: Yes Pneumonia: Yes Tuberculosis: No Stomache/Intestinal Problems Hepatitis: No Gall Bladder Disease: Yes Ulcer: Yes Gastroesophageal Reflux Disease: Yes Genital/Urinary Problems Renal Disease: No Kidney Stones: No Reproductive Problems Previous Pregnancies: Yes Musculoskeletal Problems Arthritis: Yes Fractures: Yes Head,Eye,Nose,Throat Problems Cataracts: Yes Endocrine Problems Diabetes Mellitus Type 1: No Diabetes Mellitus Type 2: Yes Blood Problems Sickle Cell Disease: No Psychologic Problems Depression: Yes Anxiety: Yes Other Problems Hospitalization: No Falls: Yes Blood Transfusions: No Blood Transfusion Reaction: No Anesthesia Reactions: No Chemotherapy: No Radiation Therapy: No Chicken Pox: Yes Measles: Yes Mumps: Yes Cancer: Yes Surgical History Hysterectomy: Yes History of Present Illness HPI Narrative Luciana Celeste is an 84-year-old female with a past medical history of type 2 diabetes mellitus, hypertension, recurrent bowel obstructions in setting of multiple abdominal surgeries, peripheral neuropathy, chronic opioid use who presented to the [facility] on 03/23 for significant pain over left ribs. On 03/07, patient presented to the ED after a ground-level fall after walking her dog, landing on her left ribs that she was unable to brace the fall. Imaging revealed an anterior fracture of the left third rib. Thus, reason for her visit today is for refill on her celecoxib that she had gotten from the ED at that time in order to make it to her appointment with her PCP early next week. Will send a refill to her pharmacy and advised patient to no longer walk her dog as she is dependent on her walker for ambulation. She has no other concerns today. Review of Systems Review of Systems Systems Reviewed: All systems reviewed, normal except as documented Objective/Exam Narrative Physical exam: General: AOx3, moderate distress from left rib pain, able to speak full sentences HEENT: NC/AT, mucous membranes moist, bilateral sclera anicteric Cardiovascular: regular rate and rhythm, S1/S2 present, no murmurs appreciated Pulmonary: clear to auscultation bilaterally, no rales/rhonchi/wheezes Abdominal: soft, non-tender, non-distended, no rebound/guarding, normal bowel sounds present Musculoskeletal: normal ROM, no peripheral edema Skin: warm and dry, intact, no rashes Assessment & Plan Diagnosis / Problem List (1) Rib fracture: Status: Acute Qualifiers: Encounter type: initial encounter Rib fracture type: single rib Fracture type: closed Laterality: left Qualified Code(s): S22.32XA - Fracture of one rib, left side, initial encounter for closed fracture Assessment & Plan: S/p ground-level fall on 03/07 and requesting refill of her celecoxib that she obtained from the ED to help her get to her appointment with her PCP following week. Plan: ? Celecoxib 200 mg p.o. twice daily as needed (20 capsules) Advanced Care Planning Advance care planning discussed with:: patient and child Office Procedures [facility] Level of Care Nursing/Assessment Patient Status: Established Patient Nursing Assessment/Reassessment: Medication Reconciliation, Update PMH in EMR and Vital Signs Coordination of Care: Complex Care and Chronic Disease 1-5, Consent,records obtained, informed consent, Education Simp Pt/Fam and Staff clarify orders Established Patient Charge Established Patient Point Assignment: 85 Established Patient Point Charge: Level 3 (33-115)
== END 2025-03-23 14:43 | disposition home or self-care (01) ==
LOC: HODAHC 13:49
PROVIDERS: PCP Pediatrics; Referring Provider Pediatrics; Supervising Provider Internal Medicine
DX: S22.32XD Fracture of one rib, left side, subsequent encounter for fracture with routine healing (principal); W18.30XD Fall on same level, unspecified, subsequent encounter; Z76.0 Encounter for issue of repeat prescription
CPT/HCPCS: 99213; G0463